=== PATIENT | female | born 1950 | race Caucasian/White ===

== ENCOUNTER → 2018-09-30 07:49 | Outpatient (CLI) | payer MEDICARE, OTHER, SELFPAY ==
--- NOTE | 2018-09-30 | DI.MRI.S_ITS ---
PROCEDURE: MR HEAD/BRAIN WO CON INDICATIONS: CVA TECHNIQUE: Non-contrast axial T1 spin echo, axial T2 fast spin echo, sagittal and axial FLAIR, coronal T2 fast spin echo, axial gradient echo, axial diffusion and ADC through the brain. COMPARISON: None. FINDINGS: Image quality: This examination is limited by involuntary motion artifact. Images are repeated, with some improvement. CSF spaces: Ventricles appear symmetric in size and shape. Basal cisterns are patent. No extra-axial fluid collections. Brain: No intracranial bleeds or mass effects. There is cerebral volume loss for age. There are periventricular and deep white matter chronic small vessel ischemic changes. Brainstem appears normal. Diffusion-weighted images show no acute ischemic insults. No chronic ischemic insults. Normal intravascular flow voids are present. Skull and face: Calvarial bone marrow is normal in signal. Orbits are normal. Sinuses: Sinuses and mastoids are clear. IMPRESSION: Limited study demonstrating no findings of acute or subacute infarction. Note is made of age-appropriate brain parenchymal volume loss and chronic small vessel ischemic changes. Dictated by: Jose Granda M.D. on 09/30/2018 at 8:25 Approved by: Jose Granda M.D. on 09/30/2018 at 8:26
== END ==
PROVIDERS: Visit Provider Family Medicine
DX: I63.9 Cerebral infarction, unspecified (principal)
CPT/HCPCS: 70551

== ENCOUNTER → 2020-03-09 13:15 | Outpatient (CLI) | payer MEDICARE, OTHER, SELFPAY ==
--- NOTE | 2020-03-09 | DI.MG.S_ITS ---
BILATERAL DIGITAL SCREENING MAMMOGRAM 3D/2D WITH CAD: 03/09/2020 CLINICAL: Routine screening. Comparison is made to exams dated: 06/29/2015 mammogram, 07/14/2013 mammogram, and 01/11/2012 mammogram - [facility]. The tissue of both breasts is heterogeneously dense. This may lower the sensitivity of mammography. Current study was also evaluated with a Computer Aided Detection (CAD) system. No significant masses, calcifications, or other findings are seen in either breast. There has been no significant interval change. IMPRESSION: NEGATIVE There is no mammographic evidence of malignancy. A 1 year screening mammogram is recommended. This exam was interpreted at Station ID: [id number]. NOTE: For mammograms, a report in lay terms will be sent to the patient. Approximately 15% of breast malignancies will not be visualized mammographically. In the management of a palpable breast mass, a negative mammogram must not discourage biopsy of a clinically suspicious lesion. Electronically Signed By: Luann garcia/shahram:03/09/2020 16:15:08 letter sent: Normal Exam ACR BI-RADS Category 1: Negative 3341F
== END ==
PROVIDERS: PCP Family Medicine; Referring Provider Family Medicine; Visit Provider Family Medicine
DX: Z12.31 Encounter for screening mammogram for malignant neoplasm of breast (principal)
CPT/HCPCS: 77063; 77067

== ENCOUNTER 2021-06-23 14:17 | Emergency (ER) | payer MEDICARE, SELFPAY ==
[2021-06-23] VITALS (10 sets, daily range): BP systolic 136–203; BP diastolic 63–95; PULSE 82–102; RESP 14–20; TEMP 36.5; O2SAT 96–99; BMI 22.6
--- NOTE | 2021-06-23 15:14 | DI.RAD.S_ITS ---
PROCEDURE: XR CHEST 1V INDICATIONS: chest pain TECHNIQUE: One view of the chest was acquired. COMPARISON: None. FINDINGS: Surgical changes and devices: None. Lungs and pleura: Lungs are clear. No pleural effusions or pneumothorax. Mediastinum: Mediastinal contours appear normal. Heart size is normal. Bones and chest wall: No suspicious bony lesions. Overlying soft tissues appear unremarkable. IMPRESSION: No acute cardiopulmonary disease. Dictated by: Diana Berg M.D. on 06/23/2021 at 15:57 Approved by: Diana Berg M.D. on 06/23/2021 at 15:57
--- NOTE | 2021-06-23 15:20 | ED_ITS ---
HPI - Neuro Symptoms/Deficit General Chief Complaint: Neuro Symptoms/Deficit Stated Complaint: Disoriented last night- Dr referred to ER. Pos TIA Time Seen by Provider: 06/23/21 14:23 Source: patient Mode of arrival: Ambulatory Limitations: no limitations History of Present Illness HPI Narrative: Patient is a 71-year-old female with history of TIA presenting with possible TIA. She says last night she was a little disoriented. It started maybe around 5:00 p.m. she was talking on a phone call then she went to is doing call or she did not speak very much and then her family talk to her because they were concerned about her disorientation. She really was not sure what day or time it was. She did not have facial droop she did not have any difficulty speaking. She says her family could understand her. She had no weakness numbness tingling. She said 2 years ago she had a previous TIA presenting similarly the symptoms were much more severe. She said she went to sleep around midnight and still was not quite normal but woke up this morning and felt fine. She denies any chest pain shortness of breath numbness tingling weakness,. She said that she was taking aspirin for about a year but quit taking it because she did not think it was helping. On Anticoagulants: No Related Data Allergies Allergy/AdvReac Type Severity Reaction Status Date / Time ciprofloxacin [From Cipro] Allergy Verified 06/23/21 14:30 Review of Systems Review of Systems Narrative: GENERAL: Denies chills, fatigue, malaise, fever, sweats, travel HEENT: Denies sinus pain, ear pain, sore throat, difficulty swallowing, neck pain RESPIRATORY: Denies dyspnea, cough, wheezing, hemoptysis, sputum. CARDIOVASCULAR: Denies chest pain, palpitations, orthopnea, edema GASTROINTESTINAL: Denies nausea, vomiting, abdominal pain, diarrhea, constipation, melena. : Denies dysuria, frequency, incontinence, hematuria, urinary retention, flank pain. MUSCULOSKELETAL: Denies weakness, joint pain, or bony pain SKIN: No rash, no erythema, no pruritus NEUROLOGIC: See HPI PSYCHIATRIC: No concerning psychosocial issues. 12 point review of systems is negative except for those stated above and HPI Hematologic/Lymphatic On Anticoagulants: No Exam Initial Vital Signs Initial Vital Signs: Vital Signs Temperature 97.7 F 06/23/21 14:25 Pulse Rate 98 H 06/23/21 14:25 Respiratory Rate 14 06/23/21 14:25 Blood Pressure 203/95 H 06/23/21 14:25 Pulse Oximetry 99 06/23/21 14:25 GENERAL: Alert well-appearing 71-year-old female HEENT: Head atraumatic,EOMI, pupils reactive, face symmetric, moist mucous membranes CARDIOVASCULAR: Regular rate and rhythm without murmurs, rubs or gallops. RESPIRATORY: Breath sounds equal bilaterally, no wheezes rales or rhonchi. ABDOMEN: Soft, nontender. Normoactive bowel sounds all 4 quadrants. No guarding or rebound. EXTREMITIES: Normal range of motion, no clubbing or edema. Neurovascularly intact NEUROLOGICAL: Alert and oriented x4.Normal gait and speech. Cranial nerves II through XII grossly intact. Good xgouft-ql-gchy, good luem-fn-fvjf, strength equal bilaterally, no dysarthria or aphasia, sensation in tact to soft touch bilaterally, no visual changes, no facial droop SKIN: Warm, dry, no laceration, no petechiae, no rashes or lesions. Scores NIH Stroke Scale Level of Conciousness: Alert, keenly responsive Ask month/age: Answers both questions correctly. Open/close eyes, close hand: Performs both tasks correctly Best gaze horizontal: Normal Visual shafer: No visual loss Facial palsy: Normal symetrical movement Left arm drift: No drift for full 10 sec Right arm drift: No drift for full 10 sec Left leg drift: No drift for full 5 sec Right leg drift: No drift for full 5 sec Limb ataxia: Absent Sensory on face/arms/legs: Normal, no sensory loss Best language: No aphasia, normal Dysarthria: Normal Extinction or inattention: No abnormality Total NIH Stroke scale score: 0 Course Orders Ordered: ED Orders 06/23/21 14:59 Complete Blood Count AUTO DIFF Stat Comprehensive Metabolic Panel Stat Lipase Stat Troponin & CK Cardiac Panel Stat 06/23/21 15:14 XR chest 1V Stat EKG-12 Lead Stat 06/23/21 15:21 CT angio head and neck Stat Discontinued Medications Aspirin (Aspirin 81 Mg Chew Tab) 324 mg PO NOW ONE Stop: 06/23/21 17:16 Last Admin: 06/23/21 17:21 Dose: 324 mg Documented by: TRENT Vital Signs Vital signs: Vital Signs - 8 hr 06/23/21 14:25 06/23/21 14:27 06/23/21 14:28 Temperature 97.7 F Pulse Rate 98 H 91 H Respiratory Rate 14 Blood Pressure 203/95 H 203/95 H Pulse Oximetry 99 98 06/23/21 14:30 06/23/21 15:00 06/23/21 15:30 Temperature Pulse Rate 93 H 88 82 Respiratory Rate Blood Pressure 173/79 H 160/73 H 171/80 H Pulse Oximetry 98 96 96 06/23/21 16:05 06/23/21 16:10 06/23/21 16:30 Temperature Pulse Rate 97 H 102 H 88 Respiratory Rate Blood Pressure 192/80 H 136/63 Pulse Oximetry 98 98 97 06/23/21 17:00 Temperature Pulse Rate 84 Respiratory Rate 20 Blood Pressure 144/70 H Pulse Oximetry 97 MDM - Neuro Symptoms/Deficit Lab Data Result diagrams: 06/23/21 14:59 06/23/21 14:59 Labs: Lab Results 06/23/21 06/23/21 Range/Units 14:59 14:59 WBC 7.8 (4.5-11.0) X10^3/uL RBC 4.47 (4.0-5.2) X10^6/uL Hgb 14.2 (12.0-16.0) g/dL Hct 40.7 (36-46) % MCV 91.0 (80-100) fL MCH 31.8 (26-34) PG MCHC 34.9 (30-36) % RDW 12.5 (11.6-14.8) % Plt Count 316 (150-400) X10^3/uL Neut % (Auto) 51.7 (50-75) % Lymph % (Auto) 37.2 (25-40) % [place] % (Auto) 8.1 (3-14) % Eos % (Auto) 1.9 L (2-4) % Baso % (Auto) 1.1 (0-2) % Neut # (Auto) 4000 (5234-2916) /uL Lymph # (Auto) 2900 (4489-8559) /uL [place] # (Auto) 600 (0-900) /uL Eos # (Auto) 100 (0-450) /uL Baso # (Auto) 100 (0-100) /uL Sodium 138 (137-145) mmol/L Potassium 3.6 (3.4-5.1) mmol/L Chloride 105 (98-107) mmol/L Carbon Dioxide 25 (22-32) mmol/L BUN 14 (7-17) mg/dL Creatinine 0.62 (0.52-1.04) mg/dL Estimated GFR > 60.0 (>60) mL/min BUN/Creatinine Ratio 22.6 H (6-22) Glucose 148 H (80-110) mg/dL Calcium 9.6 (8.4-10.2) mg/dL Total Bilirubin 0.5 (0.2-1.3) mg/dL AST 40 H (14-36) IU/L ALT 33 (<35) IU/L Alkaline Phosphatase 64 (38-126) U/L Total Creatine Kinase 45 (30-135) U/L CK-MB (CK-2) TNP CK-MB (CK-2) Rel Index TNP Troponin I < 0.012 (0.01-0.034) ng/mL Total Protein 7.5 (6.3-8.2) g/dL Albumin 4.6 (3.5-5.0) g/dL Globulin 2.9 (1.7-4.1) g/dL Albumin/Globulin Ratio 1.6 (1.0-2.8) Lipase 154 (23-300) U/L Imaging Data CTA - brain/neck: Radiologist's Impression: PROCEDURE:? CT ANGIO HEAD AND NECK ? INDICATIONS:? confusion, now resolved ? TECHNIQUE:? Pre-contrast 4.5 mm thick sections acquired from the foramen magnum to the vertex.? After the administration of intravenous contrast, 1 mm thick sections acquired from the aortic arch through the [place] of [place].? Post-contrast 4.5 mm thick sections then re- acquired from the foramen magnum to the vertex.? 3-dimensional onufkcd-ormbnwsdh-lgvulac ion (MIP) and/or volume rendering reformats were acquired of the central intracranial vasculature and neck separately. ? COMPARISON:? None. ? FINDINGS: BRAIN:? CSF spaces:? Ventricles are grossly unremarkable.? Basal cisterns are patent.? No extra-axial fluid collections.? ? Brain:? No midline shift. No intracranial bleeds or masses.? Dickson-white matter interface appears intact.? ? Skull and face:? Calvarium and facial bones appear intact, without suspicious lesions.? Orbits appear normal.? ? Sinuses:? Sinuses and mastoids are clear.? ? HEAD CT ANGIOGRAPHY:? Anterior circulation:? Intracranial internal carotid arteries (ICA): Patent. Anterior cerebral arteries (REVA): Patent. Middle cerebral arteries (MCA): Patent.? Other: No aneurysms are seen.? ? Posterior circulation:? Visualized portions of the vertebral arteries: Patent. Basilar artery: Patent. Posterior cerebral arteries (SENIOR CARE SPECIALIST): Patent. Other: No aneurysms are seen.? ? NECK CT ANGIOGRAPHY:? Carotid atherosclerotic burden:? None. Common carotid artery (CCA) origins:? Patent.? Common carotid arteries (CCA): Patent. Internal carotid arteries (ICA): Patent.? Vertebral artery origins: Patent? Extracranial vertebral arteries: Patent.? ? Soft tissues:? Visualized neck soft tissues demonstrate no suspicious abnormalities.? ? Bones:? No suspicious bony lesions.? Cervical spondylosis and facet arthropathy. ? IMPRESSION: No focal intracranial stenosis or occlusion ? No ICA stenosis ? No acute intracranial process. ? Any quantitative measurements of stenosis were performed using NASCET criteria.? ? ? Dictated by: Emiliano Leiva M.D. on 06/23/2021 at 16:15 ?? ECG Data Interpretation: Sinus rhythm rate 81 FL interval 164 QRS S [address] changes no T-wave inversion MDM Narrative Medical decision making narrative: Patient had some mild confusion last night. She says she was able to look at her calendar and transfer or what day it was. It does not sound as though she had any large vessel occlusion symptoms. Symptoms have completely resolved at this time. Possible TIA. Previous TIA was in 2019 MRI that time was negative she has had symptoms were much more severe at that time. Due to severe bed shortage and pandemic unable to admit patient. He is given aspirin in the emergency department. Recommend she follow-up with her primary care provider with outpatient MRI and echocardiogram. She agrees to continue to take aspirin daily. With also given her education on if she should have new or concerning symptoms return to the nearest emergency department for possible tPA. Discharge Plan Departure Patient Disposition: Home Clinical Impression: Transient cerebral ischemia Instructions: DI for Transient Ischemic Attack Activity Restrictions/Additional Instructions: *You have been diagnosed with probable TIA *What to do: You do need more studies such as MRI of the brain and echocardiogram. Please call your primary care provider to help schedule these as an outpatient. P *Continue to take medications as directed lease take aspirin 81 mg daily to help prevent future stroke. *Follow up with your primary care provider in 2-3 days *Return to ER if you should have confusion, weakness, numbness, tingling, facial droop, difficulty speaking or any new, worsening or concerning symptoms, go to the nearest emergency department Referrals: Ting Klein MD [Primary Care Provider] -
[2021-06-23 15:21] LABS: Add Manual Diff / Slide Review NO; Basophils Absolute Auto 100 /uL (0-100); Basophils Percent Auto 1.1 % (0-2); Eosinophils Absolute Auto 100 /uL (0-450); Eosinophils Percent Auto 1.9 % (2-4); Hematocrit 40.7 % (36-46); Hemoglobin 14.2 g/dL (12.0-16.0); Lymphocytes Absolute Auto 2900 /uL (1100-4500); Lymphocytes Percent Auto 37.2 % (25-40); Mean Corpuscular HGB Conc 34.9 % (30-36); Mean Corpuscular Hemoglobin 31.8 PG (26-34); Monocytes Absolute Auto 600 /uL (0-900); Monocytes Percent Auto 8.1 % (3-14); Neutrophils Absolute Auto 4000 /uL (1500-7000); Neutrophils Percent Auto 51.7 % (50-75); Platelet Count 316 X10^3/uL (150-400); Red Blood Cell Count 4.47 X10^6/uL (4.0-5.2); Red Cell Distribution Width 12.5 % (11.6-14.8); White Blood Cell Count 7.8 X10^3/uL (4.5-11.0)
--- NOTE | 2021-06-23 15:21 | DI.CT.S_ITS ---
PROCEDURE: CT ANGIO HEAD AND NECK INDICATIONS: confusion, now resolved TECHNIQUE: Pre-contrast 4.5 mm thick sections acquired from the foramen magnum to the vertex. After the administration of intravenous contrast, 1 mm thick sections acquired from the aortic arch through the [place] of [place]. Post-contrast 4.5 mm thick sections then re-acquired from the foramen magnum to the vertex. 3-dimensional qoxyphw-fgmsjnjwt-alcstfzssq (MIP) and/or volume rendering reformats were acquired of the central intracranial vasculature and neck separately. COMPARISON: None. FINDINGS: BRAIN: CSF spaces: Ventricles are grossly unremarkable. Basal cisterns are patent. No extra-axial fluid collections. Brain: No midline shift. No intracranial bleeds or masses. Dickson-white matter interface appears intact. Skull and face: Calvarium and facial bones appear intact, without suspicious lesions. Orbits appear normal. Sinuses: Sinuses and mastoids are clear. HEAD CT ANGIOGRAPHY: Anterior circulation: Intracranial internal carotid arteries (ICA): Patent. Anterior cerebral arteries (REVA): Patent. Middle cerebral arteries (MCA): Patent. Other: No aneurysms are seen. Posterior circulation: Visualized portions of the vertebral arteries: Patent. Basilar artery: Patent. Posterior cerebral arteries (AIR DEODORIZER SERVICER): Patent. Other: No aneurysms are seen. NECK CT ANGIOGRAPHY: Carotid atherosclerotic burden: None. Common carotid artery (CCA) origins: Patent. Common carotid arteries (CCA): Patent. Internal carotid arteries (ICA): Patent. Vertebral artery origins: Patent Extracranial vertebral arteries: Patent. Soft tissues: Visualized neck soft tissues demonstrate no suspicious abnormalities. Bones: No suspicious bony lesions. Cervical spondylosis and facet arthropathy. IMPRESSION: No focal intracranial stenosis or occlusion No ICA stenosis No acute intracranial process. Any quantitative measurements of stenosis were performed using NASCET criteria. Dictated by: Emiliano Leiva M.D. on 06/23/2021 at 16:15 Approved by: Emiliano Leiva M.D. on 06/23/2021 at 16:22
[2021-06-23 15:29] LABS: Alanine Aminotransferase 33 IU/L (<35); Albumin 4.6 g/dL (3.5-5.0); Albumin Globulin Ratio 1.6 (1.0-2.8); Alkaline Phosphatase 64 U/L (38-126); Aspartate Aminotransferase 40 IU/L (14-36); BUN Creatinine Ratio 22.6 (6-22); Bilirubin Total 0.5 mg/dL (0.2-1.3); Blood Urea Nitrogen 14 mg/dL (7-17); Calcium 9.6 mg/dL (8.4-10.2); Carbon Dioxide 25 mmol/L (22-32); Chloride 105 mmol/L (98-107); Creatine Kinase 45 U/L (30-135); Estimated Glomerular Filt Rate > 60.0 mL/min (>60); Globulin 2.9 g/dL (1.7-4.1); Glucose 148 mg/dL (80-110); HEMOLYSIS 19 (0-50); Lipase 154 U/L (23-300); Potassium 3.6 mmol/L (3.4-5.1); Sodium 138 mmol/L (137-145); Total Protein 7.5 g/dL (6.3-8.2)
[2021-06-23 15:40] LABS: Troponin I < 0.012 ng/mL (0.01-0.034)
[2021-06-23] MEDS: ASPIRIN 81 MG CHEW TAB 324 MG PO (17:21)
== END 2021-06-23 17:33 | disposition home or self-care (01) ==
PROVIDERS: Emergency Provider Emergency Medicine; PCP Family Medicine
DX: G45.9 Transient cerebral ischemic attack, unspecified (principal); R03.0 Elevated blood-pressure reading, without diagnosis of hypertension
CPT/HCPCS: 36415; 70496; 70498; 71045; 80053; 82550; 83690; 84484; 85025; 93005; 93010; 99285

== ENCOUNTER → 2021-06-30 17:38 | Outpatient (CLI) | payer MEDICARE, SELFPAY ==
--- NOTE | 2021-06-30 | DI.MRI.S_ITS ---
PROCEDURE: MR HEAD/BRAIN WO CON INDICATIONS: Transient cerebral ischemic attack, unspecified TECHNIQUE: Non-contrast axial T1 spin echo, axial T2 fast spin echo, sagittal and axial FLAIR, coronal T2 fast spin echo, axial gradient echo, axial diffusion and ADC through the brain. COMPARISON: [facility], CT, CT ANGIO HEAD AND NECK, 06/23/2021, 15:30. FINDINGS: Image quality: Excellent. CSF spaces: Ventricles appear symmetric in size and shape. Basal cisterns are patent. No extra-axial fluid collections. Brain: No intracranial bleeds or mass effects. There is cerebral volume loss for age. There are periventricular and deep white matter chronic small vessel ischemic changes. Brainstem appears normal. Diffusion-weighted images show no acute ischemic insults. No chronic ischemic insults. Normal intravascular flow voids are present. Skull and face: Calvarial bone marrow is normal in signal. Orbits are normal. Sinuses: Sinuses and mastoids are clear. IMPRESSION: 1. No acute intracranial disease process. 2. No areas of acute or chronic infarction. 3. No abnormal intracranial mass or mass effect. 4. Mild, diffuse cerebral volume loss. 5. Minimal periventricular and subcortical white matter chronic microvascular ischemic change. Dictated by: Celia Zepeda MD, PhD on 07/01/2021 at 9:10 Approved by: Celia Zepeda MD, PhD on 07/01/2021 at 9:16
== END ==
PROVIDERS: PCP Family Medicine; Referring Provider Family Medicine; Visit Provider Family Medicine
DX: G45.9 Transient cerebral ischemic attack, unspecified (principal)
CPT/HCPCS: 70551

== ENCOUNTER → 2021-07-29 08:54 | Outpatient (CLI) | payer MEDICARE, SELFPAY ==
--- NOTE | 2021-07-29 | DI.ECHO.S_ITS ---
[facility] +---------+ : : [address] [place] [address] : : : : [id number] : : : : Phone: [phone] Echocardiogram Report + + :Name: CLAUDY LINDA Study Date: 07/29/2021 Height: 61 in : :[facility] ReadingLocation: Weight: 130 lb : : Gender: Female BSA: 1.6 m2 : :: 1950 Age: 71 yrs BP: 129/74 mmHg: :Reason For Study: TIA, palpitations : : Performed By: Avel Willson : :Referring: JOSE CALVILLO : + + Interpretation Summary The left ventricular cavity is small. The left ventricle is hyperdynamic. The ejection fraction is estimated to be 70-75%. An borderline intracavitary gradient is suspected. The right ventricle is normal in size and function. There is mild to moderate pulmonic regurgitation. The IVC is of normal diameter and collapses greater than 50% with a sniff. This suggests a low right atrial pressure of 3 mm Hg.The right ventricular systolic pressure is estimated to be at least 26 mmHg based on an estimated right atrial pressure of 3 mm Hg. Moderate atherosclerotic plaque(s) in the aortic arch. Procedure: A two-dimensional transthoracic echocardiogram with color flow and Doppler was performed. The study quality was technically adequate. There is no prior echocardiogram noted for this patient. The patient was in normal sinus rhythm during the exam. Left Ventricle: The left ventricular cavity is small. There is normal left ventricular wall thickness. An intracavitary gradient is suspected. There is no thrombus. The ejection fraction is estimated to be 70-75%. The left ventricle is hyperdynamic. There are no obvious focal wall motion abnormalities noted but poor endocardial definition reduces the sensitivity for the detection of such. MV E/A: 1.0 Med Peak E' Tip: 7.8 cm/sec E/E' med: 13.1. Right Ventricle: The right ventricle is normal in size and function. Atria: The left atrial size is normal. A prominent eustachian valve is noted. The right atrium grossly appears normal in size. There is no Doppler evidence for an interatrial shunt. The thickening of interatrial septum suggests lipomatous hypertrophy. Mitral Valve: There is mild mitral annular calcification. There is trace mitral regurgitation. Aortic Valve: The aortic valve is trileaflet. The aortic valve opens well. There is no aortic valve stenosis. No aortic regurgitation is present. Tricuspid Valve: The tricuspid valve is normal. There is trace tricuspid regurgitation. The right ventricular systolic pressure is estimated to be at least 26 mmHg based on an estimated right atrial pressure of 3 mm Hg. Pulmonic Valve: The pulmonic valve is not well seen, but is grossly normal. There is mild to moderate pulmonic regurgitation. Great Vessels: The aortic root is normal size. The ascending aorta is normal in size. The aortic arch is normal in size. Moderate atherosclerotic plaque(s) in the aortic arch. The IVC is of normal diameter and collapses greater than 50% with a sniff. This suggests a low right atrial pressure of 3 mm Hg. Pericardium/ Pleura There is no pericardial effusion. There is an anterior echo-free space consistent with a fat pad. There is no pleural effusion. MMode/2D Measurements & Calculations LVIDd: 3.3 cm LVOT diam: 1.9 cm LVIDs: 1.6 cm Ao root diam: 3.0 cm FS: 50.4 % asc Aorta Diam: 2.6 cm IVSd: 0.75 cm Ao Arch Diam (Prox Trans): 3.1 cm LVPWd: 0.80 cm LV minaya. diameter/BSA (cm/m^2): 2.1 LV sys. diameter/BSA (cm/m^2): 1.0 LA A2 area: 13.7 cm2 RA long axis: 4.9 cm LA A4 area: 15.0 cm2 RA area: 15.6 cm2 LA length (vol): 5.3 cm RA vol: 42.5 ml LA vol: 33.2 ml RA : 27.0 ml/m2 LA vol index: 21.1 ml/m2 IVC diam: 1.6 cm TAPSE: 2.3 cm Doppler Measurements & Calculations Ao V2 max: 175.1 cm/sec LVOT Max Tip: 166.0 cm/sec Ao V2 mean: 121.8 cm/sec LV V1 max P.0 mmHg Ao max P.3 mmHg LV V1 VTI: 37.2 cm Ao mean P.4 mmHg LIDYA(I,D): 2.7 cm2 Ao V2 VTI: 37.2 cm LIDYA(V,D): 2.6 cm2 sev ratio: 1.00 LIDYA indexed to BSA (cm^2/m^2): 1.7 MV E max tip: 102.1 cm/sec TR max tip: 240.5 cm/sec MV A max tip: 100.3 cm/sec TR max P.1 mmHg MV E/A: 1.0 PA V2 max: 84.8 cm/sec Med Peak E' Tip: 7.8 cm/sec PA V2 mean: 61.3 cm/sec E/E' med: 13.1 PA mean P.7 mmHg Lat Peak E' Tip: 8.0 cm/sec PA pr(Accel): 32.8 mmHg E/E' lat: 12.7 E/e' average: 12.9 MV dec time: 0.20 sec SV(LVOT): 102.1 ml Reading Physician:10:38 AM
== END ==
PROVIDERS: PCP Family Medicine; Referring Provider Family Medicine; Visit Provider Family Medicine
DX: G45.9 Transient cerebral ischemic attack, unspecified (principal); I37.1 Nonrheumatic pulmonary valve insufficiency; I70.0 Atherosclerosis of aorta; R00.2 Palpitations
CPT/HCPCS: 93306

== ENCOUNTER → 2021-09-19 07:18 | Outpatient (CLI) | payer OTHER, SELFPAY ==
[2021-09-19 08:40] LABS: Alanine Aminotransferase 26 IU/L (<35); Albumin 3.9 g/dL (3.5-5.0); Albumin Globulin Ratio 1.4 (1.0-2.8); Alkaline Phosphatase 55 U/L (38-126); Aspartate Aminotransferase 31 IU/L (14-36); BUN Creatinine Ratio 16.2 (6-22); Blood Urea Nitrogen 12 mg/dL (7-17); Calcium 9.7 mg/dL (8.4-10.2); Carbon Dioxide 27 mmol/L (22-32); Chloride 109 mmol/L (98-107); Cholesterol 179 mg/dL (140-199); Estimated Glomerular Filt Rate > 60.0 mL/min (>60); Globulin 2.7 g/dL (1.7-4.1); Glucose 88 mg/dL (80-110); HDL Cholesterol 47 mg/dL (40-60); HEMOLYSIS < 15 (0-50); LDL Cholesterol Calculated 112 mg/dL (<100); Potassium 4.1 mmol/L (3.4-5.1); Sodium 140 mmol/L (137-145); Total Protein 6.6 g/dL (6.3-8.2); Triglycerides 101 mg/dL (35-150)
== END ==
PROVIDERS: PCP Family Medicine; Referring Provider Family Medicine; Visit Provider Family Medicine
DX: G45.9 Transient cerebral ischemic attack, unspecified (principal); I70.90 Unspecified atherosclerosis
CPT/HCPCS: 36415; 80053; 80061

== ENCOUNTER → 2021-10-06 12:45 | Outpatient (CLI) | payer OTHER, SELFPAY ==
[2021-10-09 15:12] LABS: Fecal Immunochemical Test Negative (Negative)
== END ==
PROVIDERS: PCP Family Medicine; Referring Provider Family Medicine; Visit Provider Family Medicine
DX: Z12.11 Encounter for screening for malignant neoplasm of colon (principal)
CPT/HCPCS: 82274

== ENCOUNTER → 2022-04-18 10:02 | Outpatient (CLI) | payer OTHER, SELFPAY ==
--- NOTE | 2022-04-18 10:07 | DI.MG.S_ITS ---
BILATERAL DIGITAL SCREENING MAMMOGRAM 3D/2D WITH CAD: 04/18/2022 CLINICAL: Routine screening. Comparison is made to exams dated: 03/09/2020 mammogram - [facility], 06/29/2015 mammogram, and 07/14/2013 mammogram - [facility]. Both breasts are heterogeneously dense, which may obscure small masses (category c / 51-75% glandular tissue). Current study was also evaluated with a Computer Aided Detection (CAD) system. No significant masses, calcifications, or other findings are seen in either breast. There has been no significant interval change. IMPRESSION: NEGATIVE There is no mammographic evidence of malignancy. A 1 year screening mammogram is recommended. Based on the Tyrer Cuzick model (a risk assessment model) the patient's lifetime risk is 6.6% and her 10 year risk is 5.9%. According to the ACR, ACS, and NCCN guidelines, an annual breast MRI exam along with mammogram is recommended if the patient's lifetime risk is 20% or greater. This exam was interpreted at Station ID: [id number]. NOTE: For mammograms, a report in lay terms will be sent to the patient. Approximately 15% of breast malignancies will not be visualized mammographically. In the management of a palpable breast mass, a negative mammogram must not discourage biopsy of a clinically suspicious lesion. Electronically Signed By: Jean Paul mar/shahram:04/18/2022 14:15:40 letter sent: Normal Exam ACR BI-RADS Category 1: Negative 3341F
== END ==
PROVIDERS: PCP Family Medicine; Referring Provider Family Medicine; Visit Provider Family Medicine
DX: Z12.31 Encounter for screening mammogram for malignant neoplasm of breast (principal)
CPT/HCPCS: 77063; 77067

== ENCOUNTER → 2022-04-21 09:03 | Outpatient (CLI) | payer OTHER, SELFPAY ==
--- NOTE | 2022-04-21 09:30 | DI.ECHO.S_ITS ---
[place] [facility]---------+ [facility] +---------+ : : [address] : [place] [address] : : : : [id number] : : : : Phone: [phone]+ Echocardiogram Report + + :Name: CLAUDY LINDA Study Date: 04/21/2022 Height: 61 in : :[facility] ReadingLocation: Weight: 120 lb : : Gender: Female BSA: 1.5 m2 : :: 1950 Age: 72 yrs BP: 149/84 mmHg: :Reason For Study: PRIOR AORTA ATHEROSCLEROSIS : :Ordering Physician: TYLER, : :GAMALIEL Performed By: Teri Naik : :Referring: GAMALIEL SCOTT : + + Interpretation Summary The patient was in sinus rhythm with heart rates between 54-67 bpm during the exam. Hypertensive during exam The left ventricular cavity is small. The ejection fraction is estimated to be 60-65%. Diastolic parameters suggest probable normal left ventricular diastolic function and normal filling pressures. There is mild tricuspid regurgitation. The right ventricular systolic pressure is estimated to be at least 23 mmHg based on an estimated right atrial pressure of 3 mm Hg. Compared to prior study on 07/29/2021, pulmonic valve regurgitation has improved. Procedure: A two-dimensional transthoracic echocardiogram with color flow and Doppler was performed. The study quality was technically adequate. Comparison is made with the echocardiogram of 07/29/2021. The patient was in sinus rhythm with heart rates between 54-67 bpm during the exam. Hypertensive during exam. Left Ventricle: The left ventricular cavity is small. There is normal left ventricular wall thickness. The ejection fraction is estimated to be 60-65%. Diastolic parameters suggest probable normal left ventricular diastolic function and normal filling pressures. Right Ventricle: The right ventricle is normal in size and function. Atria: The left atrial size is normal. Right atrial size is normal. There is no Doppler evidence for an interatrial shunt. Mitral Valve: There is mild mitral annular calcification. The mitral valve leaflets appear borderline thickened, but open well. There is trace mitral regurgitation. Aortic Valve: The aortic valve is grossly normal. The aortic valve opens well. There is no aortic valve stenosis. No aortic regurgitation is present. Tricuspid Valve: The tricuspid valve is normal in structure and function. There is mild tricuspid regurgitation. The right ventricular systolic pressure is estimated to be at least 23 mmHg based on an estimated right atrial pressure of 3 mm Hg. Pulmonic Valve: The pulmonic valve is not well visualized. There is trace pulmonic regurgitation. Great Vessels: The aortic root is normal size. The dimensions of the ascending aorta are normal. The IVC is of normal diameter and collapses greater than 50% with a sniff. This suggests a low right atrial pressure of 3 mm Hg. Pericardium/ Pleura There is no pericardial effusion. There is no pleural effusion. MMode/2D Measurements & Calculations LVIDd: 3.4 cm LVOT diam: 2.0 cm LVIDs: 2.3 cm Ao root diam: 3.1 cm FS: 32.9 % asc Aorta Diam: 2.5 cm IVSd: 1.1 cm Ao Arch Diam (Prox Trans): 2.5 cm LVPWd: 0.84 cm LV minaya. diameter/BSA (cm/m^2): 2.3 LV sys. diameter/BSA (cm/m^2): 1.5 LA A2 area: 16.5 cm2 RA long axis: 3.9 cm LA A4 area: 12.6 cm2 RA area: 11.2 cm2 LA length (vol): 4.2 cm RA vol: 27.3 ml LA vol: 41.9 ml RA : 18.0 ml/m2 LA vol index: 27.6 ml/m2 IVC diam: 1.5 cm RVD1 (basal): 3.1 cm RVD2 (mid): 3.0 cm TAPSE: 1.7 cm Doppler Measurements & Calculations Ao V2 max: 148.1 cm/sec LVOT Max Tip: 119.9 cm/sec Ao V2 mean: 91.3 cm/sec LV V1 max P.8 mmHg Ao max P.8 mmHg LV V1 VTI: 25.4 cm Ao mean P.9 mmHg LIDYA(I,D): 2.6 cm2 Ao V2 VTI: 32.0 cm LIDYA(V,D): 2.6 cm2 sev ratio: 0.80 LIDYA indexed to BSA (cm^2/m^2): 1.7 MV E max tip: 78.9 cm/sec TR max tip: 221.7 cm/sec MV A max tip: 83.3 cm/sec TR max P.7 mmHg MV E/A: 0.95 PA V2 max: 81.9 cm/sec Med Peak E' Tip: 8.7 cm/sec PA V2 mean: 56.9 cm/sec E/E' med: 9.0 PA mean P.5 mmHg Lat Peak E' Tip: 8.7 cm/sec PA pr(Accel): 34.5 mmHg E/E' lat: 9.0 E/e' average: 9.0 MV dec time: 0.19 sec SV(VESTAOT): 81.8 ml Reading Physician:TRACIE
== END ==
PROVIDERS: PCP Family Medicine; Referring Provider Family Medicine; Visit Provider Family Medicine
DX: I37.1 Nonrheumatic pulmonary valve insufficiency (principal); I70.0 Atherosclerosis of aorta; I10 Essential (primary) hypertension; I07.1 Rheumatic tricuspid insufficiency
CPT/HCPCS: 93306

== ENCOUNTER → 2023-05-21 11:32 | Outpatient (CLI) | payer OTHER, SELFPAY ==
[2023-05-23 08:57] LABS: Fecal Immunochemical Test Negative (Negative)
== END ==
PROVIDERS: PCP Family Medicine; Referring Provider Family Medicine; Visit Provider Family Medicine
DX: Z12.11 Encounter for screening for malignant neoplasm of colon (principal)
CPT/HCPCS: 82274

== ENCOUNTER → 2023-07-17 16:47 | Outpatient (CLI) | payer OTHER, SELFPAY ==
[2023-07-17 17:21] LABS: Add Manual Diff / Slide Review NO; Basophils Absolute Auto 100 /uL (0-100); Basophils Percent Auto 1.5 % (0-2); Eosinophils Absolute Auto 100 /uL (0-450); Eosinophils Percent Auto 1.8 % (2-4); Hematocrit 41.6 % (36-46); Hemoglobin 14.2 g/dL (12.0-16.0); Lymphocytes Absolute Auto 2800 /uL (1100-4500); Lymphocytes Percent Auto 36.2 % (25-40); Mean Corpuscular HGB Conc 34.1 % (30-36); Mean Corpuscular Hemoglobin 31.6 PG (26-34); Mean Corpuscular Volume 92.5 fL (80-100); Monocytes Absolute Auto 800 /uL (0-900); Monocytes Percent Auto 10.7 % (3-14); Neutrophils Absolute Auto 3900 /uL (1500-7000); Neutrophils Percent Auto 49.8 % (50-75); Platelet Count 264 X10^3/uL (150-400); Red Cell Distribution Width 12.4 % (11.6-14.8); White Blood Cell Count 7.8 X10^3/uL (4.5-11.0)
[2023-07-17 17:50] LABS: Alanine Aminotransferase 32 IU/L (<35); Albumin 4.4 g/dL (3.5-5.0); Albumin Globulin Ratio 1.4 (1.0-2.8); Alkaline Phosphatase 66 U/L (38-126); Aspartate Aminotransferase 39 IU/L (14-36); BUN Creatinine Ratio 18.8 (6-22); Bilirubin Total 0.7 mg/dL (0.2-1.3); Blood Urea Nitrogen 12 mg/dL (7-17); Calcium 9.9 mg/dL (8.4-10.2); Carbon Dioxide 27 mmol/L (22-32); Chloride 105 mmol/L (98-107); Cholesterol 209 mg/dL (140-199); Estimated Glomerular Filt Rate > 60 mL/min (>60); Globulin 3.2 g/dL (1.7-4.1); Glucose 100 mg/dL (80-110); HDL Cholesterol 52 mg/dL (40-60); HEMOLYSIS < 15 (0-50); LDL Cholesterol Calculated 128 mg/dL (<100); Potassium 4.1 mmol/L (3.4-5.1); Sodium 139 mmol/L (137-145); Total Protein 7.6 g/dL (6.3-8.2); Triglycerides 144 mg/dL (35-150)
[2023-07-17 18:18] LABS: TSH w/ Reflex to FT4 1.65 uIU/mL (0.47-4.68)
== END ==
PROVIDERS: PCP Family Medicine; Referring Provider Family Medicine; Visit Provider Family Medicine
DX: F32.A Depression, unspecified (principal); F43.9 Reaction to severe stress, unspecified; E78.00 Pure hypercholesterolemia, unspecified; M54.50 Low back pain, unspecified; G89.29 Other chronic pain
CPT/HCPCS: 36415; 80053; 80061; 84443; 85025

== ENCOUNTER → 2023-07-22 13:34 | Outpatient (CLI) | payer OTHER, SELFPAY ==
--- NOTE | 2023-07-22 13:35 | DI.MRI.S_ITS ---
PROCEDURE: MR LUMBAR SPINE WO CON INDICATIONS: lumbar spondylosis TECHNIQUE: Noncontrast sagittal T1 spin echo and T2 fast echo, sagittal STIR, and T2 fast spin echo through the lumbar spine. In cases with scoliosis, additional coronal T2 fast spin echo may be performed. COMPARISON: None. FINDINGS: Image quality: Excellent. Alignment and Curvature: There is normal bony alignment. Bone Marrow: Marrow is of normal overall signal. No acute vertebral body compression fractures. Spinal Cord: Conus medullaris terminates at the L1 level. Visualized cord demonstrates normal signal and size. Paraspinous Soft Tissues: No paravertebral masses. T12-L1: Severe disc desiccation and height loss. Reactive endplate changes and osteophyte. No canal stenosis. No foraminal stenosis. L1-L2: Moderate disc desiccation and height loss. Moderate canal stenosis. Moderate facet and ligamentum flavum hypertrophy. Mild right foraminal narrowing. No left neural foraminal narrowing. L2-L3: Mild disc desiccation and height loss. Moderate facet ligamentum flavum hypertrophy. No canal stenosis. Mild left foraminal narrowing. No right foraminal stenosis. L3-L4: Mild disc desiccation and height loss. Broad-based disc bulge. Moderate facet ligamentum flavum hypertrophy. Moderate canal stenosis. Mild bilateral foraminal narrowing. L4-L5: Mild disc desiccation and height loss. Broad-based disc bulge. Severe facet and ligamentum flavum hypertrophy. No canal stenosis. Moderate bilateral foraminal stenosis. L5-S1: Mild disc desiccation and height loss. Severe facet ligamentum flavum hypertrophy. No canal stenosis. Moderate right and mild left foraminal stenosis. IMPRESSION: 1. Disc desiccation and height loss throughout the lumbar spine most severe at T12-L1 where there is osteophytosis and reactive endplate changes. 2. Multilevel broad-based disc bulges and facet and ligamentum flavum hypertrophy with resultant moderate canal stenosis at L1-2 and L3-4 and mild canal stenosis at L2-3. 3. Moderate bilateral foraminal stenosis at L4-5 and moderate right foraminal stenosis at L5-S1. Dictated by: Luann John M.D. on 07/23/2023 at 10:49 Approved by: Luann John M.D. on 07/23/2023 at 10:55
== END ==
PROVIDERS: PCP Family Medicine; Referring Provider Family Medicine; Visit Provider Family Medicine
DX: M51.36 Other intervertebral disc degeneration, lumbar region (principal); M47.816 Spondylosis without myelopathy or radiculopathy, lumbar region; M48.061 Spinal stenosis, lumbar region without neurogenic claudication; M48.07 Spinal stenosis, lumbosacral region; M54.50 Low back pain, unspecified; G89.29 Other chronic pain
CPT/HCPCS: 72148

== ENCOUNTER → 2023-08-28 08:23 | Outpatient (CLI) | payer OTHER, SELFPAY ==
--- NOTE | 2023-08-28 08:24 | DI.RAD.S_ITS ---
PROCEDURE: XR LUMBAR SPINE MIN 4V INDICATIONS: LOW BACK PAIN TECHNIQUE: 5 views of the lumbar spine were acquired, including bilateral oblique views. COMPARISON: [facility], MR, MR LUMBAR SPINE WO CON, 07/22/2023, 13:44. FINDINGS: Bones: 5 nonrib-bearing vertebrae are present. There is trace retrolisthesis of L1 on L2, L2 on L3, L3 on L4. Endplate deformities are present T12 and L1 are present. Endplate changes were present along the inferior endplate T12 and superior endplate of L1 on prior MRI and appear similar versus minimally more prominent. Multilevel degenerative disc and foraminal narrowing are present with foraminal narrowing most severe at L5-S1. Soft tissues: Overlying bowel gas pattern is normal. No suspicious soft tissue calcifications. Oblique images: No pars defects. IMPRESSION: Multilevel degenerative changes as described above. Dictated by: Dominique Garcia M.D. on 08/28/2023 at 10:16 Approved by: Dominique Garcia M.D. on 08/28/2023 at 10:45
== END ==
PROVIDERS: PCP Family Medicine; Referring Provider Anesthesiology; Visit Provider Anesthesiology
DX: M47.816 Spondylosis without myelopathy or radiculopathy, lumbar region (principal); M47.817 Spondylosis without myelopathy or radiculopathy, lumbosacral region; M48.07 Spinal stenosis, lumbosacral region; M51.36 Other intervertebral disc degeneration, lumbar region; M54.50 Low back pain, unspecified; G89.29 Other chronic pain
CPT/HCPCS: 72110; 99214

== ENCOUNTER → 2023-09-13 11:35 | Outpatient (CLI) | payer OTHER, SELFPAY ==
--- NOTE | 2023-09-13 | DI.MG.S_ITS ---
BILATERAL DIGITAL SCREENING MAMMOGRAM 3D/2D WITH CAD: 09/13/2023 CLINICAL: Routine screening. Comparison is made to exams dated: 04/18/2022 mammogram, 03/09/2020 mammogram - [facility], and 06/29/2015 mammogram - [facility]. Both breasts are heterogeneously dense, which may obscure small masses (category c / 51-75% glandular tissue). Current study was also evaluated with a Computer Aided Detection (CAD) system. There is a cluster of focal asymmetries in the left breast at 12 o'clock middle depth. No other significant masses, calcifications, or other findings are seen in either breast. IMPRESSION: INCOMPLETE: NEEDS ADDITIONAL IMAGING EVALUATION The cluster of focal asymmetries in the left breast is indeterminate. Additional views with possible ultrasound are recommended. Based on the Tyrer Cuzick model (a risk assessment model) the patient's lifetime risk is 6.1% and her 10 year risk is 6.1%. According to the ACR, ACS, and NCCN guidelines, an annual breast MRI exam along with mammogram is recommended if the patient's lifetime risk is 20% or greater. This exam was interpreted at Station ID: [id number]. NOTE: For mammograms, a report in lay terms will be sent to the patient. Approximately 15% of breast malignancies will not be visualized mammographically. In the management of a palpable breast mass, a negative mammogram must not discourage biopsy of a clinically suspicious lesion. Electronically Signed By: Jean Paul Hartmann M.D. lc/:09/13/2023 15:18:40 letter sent: Additional Imaging Needed ACR BI-RADS Category 0: Incomplete [id number]
== END ==
LOC: MAMMO 11:36
PROVIDERS: PCP Family Medicine; Referring Provider Family Medicine; Visit Provider Family Medicine
DX: Z12.31 Encounter for screening mammogram for malignant neoplasm of breast (principal); R92.333 Mammographic heterogeneous density, bilateral breasts
CPT/HCPCS: 77063; 77067

== ENCOUNTER → 2023-10-11 13:32 | Outpatient (CLI) | payer OTHER, SELFPAY ==
--- NOTE | 2023-10-11 | DI.MG.S_ITS ---
UNILATERAL LEFT DIGITAL DIAGNOSTIC MAMMOGRAM 3D/2D WITH ADDITIONAL VIEWS: 10/11/2023 CLINICAL: Additional evaluation requested from prior study. Comparison is made to exams dated: 09/13/2023 mammogram, 04/18/2022 mammogram, and 03/09/2020 mammogram - . The left breast is heterogeneously dense, which may obscure small masses (category c / 51-75% glandular tissue). There is a focal asymmetry in the left breast at 12 o'clock middle depth. Stable dystrophic appearing calcifications. No other significant masses or calcifications are seen in the breast. IMPRESSION: INCOMPLETE: NEEDS ADDITIONAL IMAGING EVALUATION The focal asymmetry in the left breast resembles a cyst and is indeterminate. A targeted ultrasound is recommended and will immediately follow. Based on the Tyrer Cuzick model (a risk assessment model) the patient's lifetime risk is 6.1% and her 10 year risk is 6.1%. According to the ACR, ACS, and NCCN guidelines, an annual breast MRI exam along with mammogram is recommended if the patient's lifetime risk is 20% or greater. This exam was interpreted at Station ID: [id number]. NOTE: For mammograms, a report in lay terms will be sent to the patient. Approximately 15% of breast malignancies will not be visualized mammographically. In the management of a palpable breast mass, a negative mammogram must not discourage biopsy of a clinically suspicious lesion. Electronically Signed By: Cecil Galicia M.D. slc/:10/11/2023 14:08:02 ACR BI-RADS Category 0: Incomplete [id number]
--- NOTE | 2023-10-11 13:33 | DI.US.S_ITS ---
LIMITED ULTRASOUND OF LEFT BREAST: 10/11/2023 CLINICAL: Patient returns today to evaluate a focal asymmetry in the left breast. Comparison is made to exams dated: 10/11/2023 mammogram, 04/18/2022 mammogram, 09/13/2023 mammogram, and 03/09/2020 mammogram - [facility]. Color flow and real-time ultrasound of the left breast 12 o'clock region were performed. Dickson scale images of the real-time examination were reviewed. There is a benign 0.8 cm x 0.7 cm x 0.7 cm cluster of oval cysts in the left breast at 12 o'clock middle depth 3 cm from the nipple. This cluster of oval cysts is anechoic. This correlates with mammography findings. Color flow imaging demonstrates that there is no vascularity present. IMPRESSION: BENIGN There is no sonographic evidence of malignancy. The 0.8 cm cluster of oval cysts in the left breast is benign. A 1 year screening mammogram is recommended. Exam findings were conveyed to the patient. This exam was interpreted at Station ID: [id number]. Electronically Signed By: Cecil Galicia M.D. [facility]/:10/11/2023 14:29:57 letter sent: Normal Exam Ultrasound BI-RADS: 2 Benign
== END ==
LOC: MAMMO 13:32
PROVIDERS: PCP Family Medicine; Referring Provider Family Medicine; Visit Provider Family Medicine
DX: R92.8 Other abnormal and inconclusive findings on diagnostic imaging of breast (principal); N60.02 Solitary cyst of left breast; R92.332 Mammographic heterogeneous density, left breast
CPT/HCPCS: 76642; 77065; G0279

== ENCOUNTER → 2023-12-27 06:44 | Outpatient (CLI) | payer OTHER, SELFPAY ==
[2023-12-27 08:04] LABS: Add Manual Diff / Slide Review NO; Basophils Absolute Auto 100 /uL (0-100); Eosinophils Absolute Auto 200 /uL (0-450); Eosinophils Percent Auto 4.1 % (2-4); Hematocrit 42.2 % (36-46); Hemoglobin 14.3 g/dL (12.0-16.0); Lymphocytes Absolute Auto 1800 /uL (1100-4500); Lymphocytes Percent Auto 33.8 % (25-40); Mean Corpuscular HGB Conc 33.9 % (30-36); Mean Corpuscular Hemoglobin 31.7 PG (26-34); Mean Corpuscular Volume 93.7 fL (80-100); Monocytes Absolute Auto 600 /uL (0-900); Monocytes Percent Auto 10.7 % (3-14); Neutrophils Absolute Auto 2700 /uL (1500-7000); Neutrophils Percent Auto 50.4 % (50-75); Platelet Count 239 X10^3/uL (150-400); Red Cell Distribution Width 12.4 % (11.6-14.8); White Blood Cell Count 5.4 X10^3/uL (4.5-11.0)
[2023-12-27 15:40] LABS: Appearance Urine UA CLEAR; Bilirubin Urine UA NEGATIVE (NEGATIVE); Color Urine UA YELLOW; Glucose Urine UA NEGATIVE (Negative); Ketones Urine UA NEGATIVE (NEGATIVE); Leukocyte Esterase Urine UA NEGATIVE (NEGATIVE); Nitrite Urine UA NEGATIVE (Negative); Occult Blood Urine UA NEGATIVE (Negative); Protein Urine UA NEGATIVE (Negative); Urobilinogen Urine UA 0.2 E.U./dL (0.2)
[2023-12-27 15:54] LABS: pH Urine UA 6.5 (4.5-8.0)
[2023-12-27 15:55] LABS: Bacteria Urine None Seen; Culture Indicated Urine Cult Not Indicated; RBC Urine 0-1/HPF (0-5/HPF); Squamous Epithelial Cell Urine 5-10 /HPF (0-5/HPF); Urine Volume 10mL (spun); WBC Urine 0-1/HPF (0-5/HPF)
[2023-12-28 09:28] LABS: Apolipoprotein B 86 mg/dL (<90)
[2023-12-28 14:01] LABS: Alanine Aminotransferase 22 IU/L (<35); Albumin 3.9 g/dL (3.5-5.0); Albumin Globulin Ratio 1.4 (1.0-2.8); Alkaline Phosphatase 64 U/L (38-126); Aspartate Aminotransferase 33 IU/L (14-36); BUN Creatinine Ratio 17.3 (6-22); Bilirubin Total 0.7 mg/dL (0.2-1.3); Blood Urea Nitrogen 13 mg/dL (7-17); Calcium 9.1 mg/dL (8.4-10.2); Carbon Dioxide 25 mmol/L (22-32); Chloride 109 mmol/L (98-107); Cholesterol 159 mg/dL (140-199); Estimated Glomerular Filt Rate > 60 mL/min (>60); Globulin 2.7 g/dL (1.7-4.1); Glucose 83 mg/dL (80-110); HDL Cholesterol 49 mg/dL (40-60); HEMOLYSIS < 15 (0-50); LDL Cholesterol Calculated 94 mg/dL (<100); Potassium 4.3 mmol/L (3.4-5.1); Sodium 142 mmol/L (137-145); Total Protein 6.6 g/dL (6.3-8.2); Triglycerides 79 mg/dL (35-150)
[2023-12-28 14:08] LABS: TSH w/ Reflex to FT4 1.87 uIU/mL (0.47-4.68)
[2023-12-28 14:47] LABS: Vitamin B12 Reflex MMA if <400 415 pg/mL (239-931)
== END ==
PROVIDERS: PCP Family Medicine; Referring Provider Internal Medicine; Visit Provider Internal Medicine
DX: E78.00 Pure hypercholesterolemia, unspecified (principal); R03.0 Elevated blood-pressure reading, without diagnosis of hypertension; I37.1 Nonrheumatic pulmonary valve insufficiency; R41.3 Other amnesia
CPT/HCPCS: 36415; 80053; 80061; 81001; 82172; 82607; 84443; 85025

== ENCOUNTER → 2024-02-18 12:12 | Outpatient (CLI) | payer OTHER, SELFPAY ==
--- NOTE | 2024-02-18 12:13 | DI.ECHO.S_ITS ---
[place] +---------+ Hospital : : [address] : : [place] : : [id number] : : Phone: [phone] Echocardiogram Report + + :Name: CLAUDY LINDA Study Date: 02/18/2024 Height: 61.5 in: :[facility] ReadingLocation: Weight: 120 lb : : Gender: Female BSA: 1.5 m2 : :: 1950 Age: 73 yrs BP: 140/73 mmHg: :Reason For Study: PFO : :Ordering Physician: TIEN HATHAWAY Performed By: Teri Naik : :Referring: TIEN HATHAWAY : + + Interpretation Summary 1. The left ventricular contractility is normal. Estimated ejection fraction is greater than 55% with no segmental wall motion abnormalities. No LVH is noted. Impaired relaxation present. 2. The right ventricular contractility is normal. 3. All cardiac chambers are of normal size. 4. No significant valvular abnormalities are appreciated. 5. No obvious intracardiac shunts noted on color Doppler evaluation. No agitated saline contrast study was performed. 6. No obvious intracardiac masses nor thrombi appreciated. 7. No hemodynamically significant pericardial effusion identified. Conclusion: Normal biventricular systolic function with no significant valvular nor structural abnormalities. Procedure: A two-dimensional transthoracic echocardiogram with color flow and Doppler was performed. The study quality was technically adequate. Comparison is made with the echocardiogram of 04/21/2022. Left Ventricle: The left ventricle is normal in size and wall thickness. The ejection fraction is estimated to be 60-65%. Right Ventricle: The right ventricle is normal in size and function. Atria: The left atrial size is normal. Right atrial size is normal. There is no Doppler evidence for an interatrial shunt. Mitral Valve: The mitral valve is normal in structure and function. There is trace mitral regurgitation. Aortic Valve: The aortic valve is trileaflet. The aortic valve opens well. There is no aortic valve stenosis. No aortic regurgitation is present. Tricuspid Valve: The tricuspid valve is normal in structure and function. There is mild tricuspid regurgitation. The right ventricular systolic pressure is estimated to be at least 23 mmHg based on an estimated right atrial pressure of 3 mm Hg. Pulmonic Valve: The pulmonic valve is not well seen, but is grossly normal. The pulmonic valve is not well visualized. There is mild pulmonic regurgitation. Great Vessels: The aortic root is normal size. The dimensions of the ascending aorta are normal. The IVC is of normal diameter and collapses greater than 50% with a sniff. This suggests a low right atrial pressure of 3 mm Hg. Pericardium/ Pleura There is no pericardial effusion. There is no pleural effusion. MMode/2D Measurements & Calculations LVIDd: 4.0 cm LVOT diam: 1.9 cm LVIDs: 2.6 cm Ao root diam: 2.9 cm FS: 35.2 % asc Aorta Diam: 2.6 cm IVSd: 0.72 cm Ao Arch Diam (Prox Trans): 2.9 cm LVPWd: 0.76 cm LV minaya. diameter/BSA (cm/m^2): 2.6 LV sys. diameter/BSA (cm/m^2): 1.7 LA A2 area: 16.6 cm2 RA long axis: 3.5 cm LA A4 area: 11.2 cm2 RA area: 10.1 cm2 LA length (vol): 4.2 cm RA vol: 24.9 ml LA vol: 37.9 ml RA : 16.3 ml/m2 LA vol index: 24.7 ml/m2 IVC diam: 1.6 cm RVD1 (basal): 3.5 cm RVD2 (mid): 3.3 cm TAPSE: 1.8 cm Doppler Measurements & Calculations Ao V2 max: 137.3 cm/sec LVOT Max Tip: 90.4 cm/sec Ao V2 mean: 100.4 cm/sec LV V1 max P.3 mmHg Ao max P.5 mmHg LV V1 VTI: 21.5 cm Ao mean P.3 mmHg LIDYA(I,D): 2.1 cm2 Ao V2 VTI: 30.2 cm LIDYA(V,D): 1.9 cm2 sev ratio: 0.71 LIDYA indexed to BSA (cm^2/m^2): 1.4 MV E max tip: 77.5 cm/sec TR max tip: 226.2 cm/sec MV A max tip: 82.0 cm/sec TR max P.5 mmHg MV E/A: 0.94 PA V2 max: 87.0 cm/sec Med Peak E' Tip: 8.3 cm/sec PA V2 mean: 68.2 cm/sec E/E' med: 9.4 PA mean P.0 mmHg Lat Peak E' Tip: 6.9 cm/sec PA pr(Accel): 27.6 mmHg E/E' lat: 11.2 E/e' average: 10.3 MV dec time: 0.26 sec SV(LVOT): 62.7 ml Reading Physician:
== END ==
PROVIDERS: PCP Family Medicine; Referring Provider Internal Medicine; Visit Provider Internal Medicine
DX: Q21.12 Patent foramen ovale (principal); I07.1 Rheumatic tricuspid insufficiency
CPT/HCPCS: 93306

== ENCOUNTER → 2024-05-22 12:43 | Outpatient (CLI) | payer OTHER, SELFPAY ==
--- NOTE | 2024-05-22 12:44 | DI.RAD.S_ITS ---
PROCEDURE: XR DEXA AXIAL SKELETON INDICATIONS: post-menopausal COMPARISON: None. FINDINGS: Lumbar Spine: Bone mineral density 0.734 g/cm2, T score -2.8. Left Hip: Bone mineral density 0.595 g/cm2, T score -2.8. Left Femoral Neck: Bone mineral density 0.513 g/cm2, T score -3.0. Right Hip: Bone mineral density 0.548 g/cm2, T score -3.2. Right Femoral Neck: Bone mineral density 0.498 g/cm2, T score -3.2. Fracture Risk Calculation (when applicable): 10-year fracture risk of a major osteoporotic fracture 21 percent and of a hip fracture 8.5 percent. (T score greater or equal to -1.0 to: NORMAL) (T score from -1.1 to -2.4: OSTEOPENIA) (T score less than or equal to -2.5: OSTEOPOROSIS) IMPRESSION: Osteoporosis. Follow-up guidelines as follows: Osteoporosis: Consider a repeat DEXA and Vertebral Fracture Assessment (VFA) exam in 2 years or sooner if medically necessary, to reassess this patient's status. Osteopenia: Consider a repeat DEXA in 2-3 years to reassess this patient's status, or if there is a new clinical indication. Normal: Consider a repeat DEXA in 5 years or sooner, or if there is a new clinical indication. All treatment decisions require clinical judgment and consideration of individual patient factors, including patient preferences, comorbidities, previous drug use, risk factors not captured in the FRAX model (e.g., frailty, falls, vitamin D deficiency, increased bone turnover, interval significant decline in bone density ) and possible under- or over-estimation of fracture risk by FRAX. In addition, the NOF Guide recommends that FDA-approved medical therapies be considered in postmenopausal women and men age >= 50 years with a: * Hip or vertebral (clinical or morphometric) fracture * T-score of <=-2.5 at the spine or hip * Ten-year fracture probability by FRAX of >= 3% for hip fracture or >=20% for major osteoporotic fracture. People with diagnosed cases of osteoporosis or at high risk for fracture should have regular bone mineral density tests. For patients eligible for Medicare, routine testing is allowed once every 2 years. The testing frequency can be increased to one year for patients who have rapidly progressing disease, those who are receiving or discontinuing medical therapy to restore bone mass, or have additional risk factors. Dictated by: Ej Hathaway M.D. on 05/22/2024 at 16:46 Approved by: Ej Hathaway M.D. on 05/22/2024 at 16:47
== END ==
PROVIDERS: PCP Family Medicine; Referring Provider Family Medicine; Visit Provider Family Medicine
DX: N95.1 Menopausal and female climacteric states; M81.0 Age-related osteoporosis without current pathological fracture
CPT/HCPCS: 77080

== ENCOUNTER 2024-06-26 09:28 | Emergency (ER) | payer OTHER, SELFPAY ==
[2024-06-26] VITALS (12 sets, daily range): BP systolic 125–218; BP diastolic 58–98; PULSE 62–93; RESP 12–24; TEMP 36.7; O2SAT 93–98; BMI 22.6
--- NOTE | 2024-06-26 09:34 | DI.RAD.S_ITS ---
PROCEDURE: XR CHEST 1V INDICATIONS: chest pain TECHNIQUE: One view of the chest was acquired. COMPARISON: [facility], CR, XR CHEST 1V, 06/23/2021, 15:15. FINDINGS: Surgical changes and devices: None. Lungs and pleura: Lungs are clear. No pleural effusions or pneumothorax. Mediastinum: Mediastinal contours appear normal. Heart size is normal. Bones and chest wall: No suspicious bony lesions. Overlying soft tissues appear unremarkable. IMPRESSION: No acute cardiopulmonary abnormality is seen. Dictated by: Anton Fischer M.D. on 06/26/2024 at 10:03 Approved by: Anton Fischer M.D. on 06/26/2024 at 10:03
--- NOTE | 2024-06-26 09:42 | EKG_ITS ---
[address] [address] Test Date: 2024-06-26 Pat Name: Cheyenne Jones Department: Room: Gender: Female Gsa Coordinator: FABRICIO : 1950 Requested By: Order Number: [id number] Reading MD: Sharad Das MD Measurements Intervals Rebuck Rate: 77 P: 64 MO: 156 QRS: 6 QRSD: 78 T: 60 QT: 404 QTc: 457 Interpretive Statements Normal sinus rhythm Inferior infarct , age undetermined Electronically Signed On 06-27-2024 11:38:54 PST by Sharad Das MD
[2024-06-26 09:54] LABS: Add Manual Diff / Slide Review NO; Basophils Absolute Auto 100 /uL (0-100); Eosinophils Absolute Auto 100 /uL (0-450); Eosinophils Percent Auto 1.2 % (2-4); Hematocrit 47.1 % (36-46); Hemoglobin 16.1 g/dL (12.0-16.0); Lymphocytes Absolute Auto 2700 /uL (1100-4500); Lymphocytes Percent Auto 31.6 % (25-40); Mean Corpuscular HGB Conc 34.1 % (30-36); Mean Corpuscular Hemoglobin 31.9 PG (26-34); Mean Corpuscular Volume 93.6 fL (80-100); Monocytes Absolute Auto 700 /uL (0-900); Monocytes Percent Auto 8.5 % (3-14); Neutrophils Absolute Auto 4900 /uL (1500-7000); Neutrophils Percent Auto 57.7 % (50-75); Platelet Count 283 X10^3/uL (150-400); Red Blood Cell Count 5.03 X10^6/uL (4.0-5.2); Red Cell Distribution Width 12.8 % (11.6-14.8); White Blood Cell Count 8.6 X10^3/uL (4.5-11.0)
[2024-06-26 10:01] LABS: Prothrombin Time 11.1 SECONDS (9.4-12.5)
[2024-06-26 10:03] LABS: PTT Partial Thromboplastin Tim 39 SECONDS (25.1-36.5)
--- NOTE | 2024-06-26 10:10 | ED.CHESTPAIN ---
HPI - Chest Pain General Chief Complaint: Chest Pain Stated Complaint: Left Side Chest Pain Time Seen by Provider: 06/26/24 09:32 Source: patient and EMS Mode of arrival: EMS Limitations: no limitations History of Present Illness HPI narrative: Patient is a 74-year-old female who is here for evaluation of chest discomfort. Patient states that it started at approximately 0530 this morning which is approximately 4-1/2 hours prior to arrival here in the emergency department. She states she was getting up at the time. Describes it as a sharp pain in the left side of her chest. It did cause some discomfort to her left arm and her upper back. No problems breathing but the pain did get worse when she took a big deep breath in. She stated that she could reproduce the pain by raising her left arm up. She was now asymptomatic. The discomfort went away some time between when the paramedics arrived and when she arrived here in the emergency department. She was now asymptomatic. Has never had symptoms like this in the past. Has had a TIA in the past. Earlier this year had a echocardiogram for evaluation of her TIAs what she was told that everything was okay. No history of abnormal heart rhythms. No fevers. No cough. No skin changes. Related Data Home Medications Medication Instructions Recorded Confirmed red krill oil PO 08/23/21 06/16/24 triphale PO 08/23/21 06/16/24 vitamin E mixed 400 unit capsule unit PO 08/23/21 06/16/24 floravital PO 07/17/23 06/16/24 horsetail tea PO 07/17/23 06/16/24 Chelated Magnesium 200 mg PO DAILY 08/28/23 06/16/24 cholecalciferol (vitamin D3) 125 125 mcg PO DAILY 12/25/23 06/16/24 mcg (5,000 unit) tablet (Vitamin D3) Allergies Allergy/AdvReac Type Severity Reaction Status Date / Time urbano Allergy Severe choking Verified 06/16/24 10:22 ciprofloxacin [From Cipro] Allergy Verified 06/16/24 10:22 smoked meats Allergy Intermediate Hives Uncoded 06/16/24 10:22 Review of Systems Review of Systems ROS Unobtainable: All systems reviewed & are unremarkable except as noted in HPI and below Patient History Medical History Bilateral hand pain Borderline hypertension Lumbar degenerative disc disease Spondylosis of lumbar spine Chronic low back pain Actinic keratosis (~1984) Seasonal allergies (~1967) Human papillomavirus (~2014) Thyroid nodule (~2019) Depression (~1978) Mild pulmonary valve regurgitation Surgical History Anesthesia H/O tooth extraction (~1959) Previous (~1970) Previous (~1969) History of tonsillectomy (~1968) History of appendectomy (~1954) Family History Father Seizures Mother Lymphosarcoma Lymphoma Diabetes mellitus Brother Suicide Brother Pancreatic cancer Diabetes mellitus Heart disease Rheumatic fever Grandfather Stomach cancer Grandfather No problems noted. Social History Smoking Status: Former smoker Smoking Status: Former smoker alcohol intake frequency: holidays/special occasions only Substance Use Type: does not use Exam Initial Vital Signs Initial Vital Signs: Vital Signs Temperature 98.1 F 06/26/24 09:34 Pulse Rate 87 06/26/24 09:34 Respiratory Rate 15 06/26/24 09:34 Blood Pressure 218/98 H 06/26/24 09:34 Pulse Oximetry 98 06/26/24 09:34 Oxygen Delivery Method Room Air 06/26/24 09:34 Const General: cooperative, comfortable and No ill appearing HENMT Head: normal to inspection and normocephalic Chest Chest: No crepitus and No tenderness Resp Effort & Inspection: normal respiratory effort Auscultation: clear to auscultation bilaterally Cardio Rate: regular rate Rhythm: regular rhythm Skin General: no rashes or lesions noted Neuro General: patient alert, patient awake, patient oriented x3 and moves all extremities Extrem General: No edema Course Orders Ordered: ED Orders 06/26/24 09:30 Complete Blood Count AUTO DIFF Stat Comprehensive Metabolic Panel Stat Lipase Stat Magnesium Stat NT-proBNP (BNP-Adult 18+) Stat PTT Partial Thromboplastin Kadeem Stat Prothrombin Time INR Stat Troponin & CK Cardiac Panel Stat 06/26/24 09:34 XR chest 1V Stat EKG-12 Lead Stat 06/26/24 11:25 Troponin & CK Cardiac Panel Stat Discontinued Medications Aspirin (Aspirin 81 Mg Chew Tab) 324 mg PO NOW ONE Stop: 06/26/24 09:35 Last Admin: 06/26/24 09:49 Dose: Not Given Documented By: RB Vital Signs Vital signs: Vital Signs - 8 hr 06/26/24 09:34 06/26/24 09:35 06/26/24 09:36 Temperature 98.1 F Pulse Rate 87 93 H Respiratory Rate 15 13 Blood Pressure 218/98 H 218/98 H Pulse Oximetry 98 98 Oxygen Delivery Method Room Air 06/26/24 09:36 06/26/24 10:00 06/26/24 10:01 Temperature Pulse Rate 86 74 75 Respiratory Rate 15 18 24 Blood Pressure Pulse Oximetry 98 95 94 Oxygen Delivery Method 06/26/24 10:01 06/26/24 10:30 06/26/24 10:30 Temperature Pulse Rate 79 Respiratory Rate 23 Blood Pressure 144/66 H 179/85 H Pulse Oximetry 96 Oxygen Delivery Method 06/26/24 11:00 06/26/24 11:01 06/26/24 11:01 Temperature Pulse Rate 66 66 Respiratory Rate 22 23 Blood Pressure 152/69 H Pulse Oximetry 95 94 Oxygen Delivery Method 06/26/24 11:30 06/26/24 11:31 06/26/24 11:31 Temperature Pulse Rate 62 64 Respiratory Rate 15 12 Blood Pressure 125/58 L Pulse Oximetry 94 93 Oxygen Delivery Method 06/26/24 12:00 06/26/24 12:00 Temperature Pulse Rate 72 Respiratory Rate 13 Blood Pressure 139/65 Pulse Oximetry 94 Oxygen Delivery Method MDM - Chest Pain Lab Data Attestation: I reviewed the patient's lab results. 06/26/24 09:30 06/26/24 09:30 Labs: Lab Results 06/26/24 06/26/24 Range/Units 09:30 11:25 WBC 8.6 (4.5-11.0) X10^3/uL RBC 5.03 (4.0-5.2) X10^6/uL Hgb 16.1 H (12.0-16.0) g/dL Hct 47.1 H (36-46) % MCV 93.6 (80-100) fL MCH 31.9 (26-34) PG MCHC 34.1 (30-36) % RDW 12.8 (11.6-14.8) % Plt Count 283 (150-400) X10^3/uL Neut % (Auto) 57.7 (50-75) % Lymph % (Auto) 31.6 (25-40) % Hettinger % (Auto) 8.5 (3-14) % Eos % (Auto) 1.2 L (2-4) % Baso % (Auto) 1.0 (0-2) % Neut # (Auto) 4900 (1258-3062) /uL Lymph # (Auto) 2700 (6835-3111) /uL Hettinger # (Auto) 700 (0-900) /uL Eos # (Auto) 100 (0-450) /uL Baso # (Auto) 100 (0-100) /uL PT 11.1 (9.4-12.5) SECONDS INR 1.0 (0.9-1.3) APTT 39 H (25.1-36.5) SECONDS Sodium 140 (137-145) mmol/L Potassium 4.3 (3.4-5.1) mmol/L Chloride 106 (98-107) mmol/L Carbon Dioxide 24 (22-32) mmol/L BUN 12 (7-17) mg/dL Creatinine 0.69 (0.52-1.04) mg/dL Estimated GFR > 60 (>60) mL/min BUN/Creatinine Ratio 17.4 (6-22) Glucose 119 H (80-110) mg/dL Calcium 9.9 (8.4-10.2) mg/dL Magnesium 2.1 (1.6-2.3) mg/dL Total Bilirubin 0.9 (0.2-1.3) mg/dL AST 43 H (14-36) IU/L ALT 29 (<35) IU/L Alkaline Phosphatase 84 (38-126) U/L Total Creatine Kinase 60 62 (30-135) U/L Troponin I < 0.012 < 0.012 (0.01-0.034) ng/mL NT-Pro-B Natriuret Pep < 20 (<450) pg/mL Total Protein 8.2 (6.3-8.2) g/dL Albumin 4.7 (3.5-5.0) g/dL Globulin 3.5 (1.7-4.1) g/dL Albumin/Globulin Ratio 1.3 (1.0-2.8) Lipase 105 (23-300) U/L Imaging Data Chest x-ray: Radiologist's Impression: PROCEDURE: XR CHEST 1V INDICATIONS: chest pain TECHNIQUE: One view of the chest was acquired. COMPARISON: [facility], CR, XR CHEST 1V, 06/23/2021, 15:15. FINDINGS: Surgical changes and devices: None. Lungs and pleura: Lungs are clear. No pleural effusions or pneumothorax. Mediastinum: Mediastinal contours appear normal. Heart size is normal. Bones and chest wall: No suspicious bony lesions. Overlying soft tissues appear unremarkable. IMPRESSION: No acute cardiopulmonary abnormality is seen. ECG Data Attestation: I personally reviewed and interpreted this ECG as follows: Interpretation: Sinus rhythm Ventricular rate is 77 Normal axis Normal QRS No ST T wave changes MDM Narrative Medical decision making narrative: Asymptomatic, 2- troponins, nonischemic EKG. Low suspicion that this is ACS given the fact that she has reproducible discomfort with movement of the left arm. Symptoms are not consistent with zoster she was no rash. Not consistent with pneumonia or pneumothorax given a normal chest x-ray. Had a discussion with her regarding this. Advised that she contact her primary care doctor for a follow-up. She was given return precautions. She expressed understanding and agreement with plan. Discharge Plan Departure Patient Disposition: Home Clinical Impression: Atypical chest pain Instructions: DI for Atypical Chest Pain Activity Restrictions/Additional Instructions: Continue to take all of your medications as directed. Recommend that you contact your primary care doctor for a follow-up. Return to the emergency department for new or worsening symptoms. Prescriptions: No Action red krill oil 1,000 mg capsule PO vitamin E mixed 400 unit capsule PO triphale PO Rx Instructions: tonic with taylor, tumeric, soboba juice floravital PO horsetail tea PO Chelated Magnesium 200 mg PO DAILY cholecalciferol (vitamin D3) [Vitamin D3] 125 mcg (5,000 unit) tablet 125 mcg PO DAILY Patient Comments: Take in winter during short daylight months Referrals: David Saldivar MD [Primary Care Provider] - Stand Alone Forms: Patient Portal/API/Survey
[2024-06-26 10:12] LABS: Alanine Aminotransferase 29 IU/L (<35); Albumin 4.7 g/dL (3.5-5.0); Albumin Globulin Ratio 1.3 (1.0-2.8); Alkaline Phosphatase 84 U/L (38-126); Aspartate Aminotransferase 43 IU/L (14-36); BUN Creatinine Ratio 17.4 (6-22); Bilirubin Total 0.9 mg/dL (0.2-1.3); Blood Urea Nitrogen 12 mg/dL (7-17); Calcium 9.9 mg/dL (8.4-10.2); Carbon Dioxide 24 mmol/L (22-32); Chloride 106 mmol/L (98-107); Creatine Kinase 60 U/L (30-135); Estimated Glomerular Filt Rate > 60 mL/min (>60); Globulin 3.5 g/dL (1.7-4.1); Glucose 119 mg/dL (80-110); HEMOLYSIS < 15 (0-50); Lipase 105 U/L (23-300); Magnesium 2.1 mg/dL (1.6-2.3); Potassium 4.3 mmol/L (3.4-5.1); Sodium 140 mmol/L (137-145); Total Protein 8.2 g/dL (6.3-8.2)
[2024-06-26 10:24] LABS: NT-proBNP (BNP-Adult 18+) < 20 pg/mL (<450); Troponin I < 0.012 ng/mL (0.01-0.034)
[2024-06-26 11:43] LABS: Creatine Kinase 62 U/L (30-135)
[2024-06-26 11:56] LABS: Troponin I < 0.012 ng/mL (0.01-0.034)
== END 2024-06-26 12:54 | disposition home or self-care (01) ==
PROVIDERS: Emergency Provider Emergency Medicine; PCP Family Medicine
DX: R07.89 Other chest pain (principal); M54.6 Pain in thoracic spine; M79.602 Pain in left arm; Z86.73 Personal history of transient ischemic attack (TIA), and cerebral infarction without residual deficits
CPT/HCPCS: 36415; 71045; 80053; 82550; 83690; 83735; 83880; 84484; 85025; 85610; 85730; 93005; 99284

== ENCOUNTER → 2024-07-15 10:50 | Outpatient (CLI) | payer OTHER, SELFPAY ==
--- NOTE | 2024-07-15 10:51 | DI.RAD.S_ITS ---
PROCEDURE: XR SHOULDER RT MIN 2V INDICATIONS: RIGHT SHOULDER PAIN TECHNIQUE: 3 views of the shoulder were acquired. COMPARISON: [facility], CR, XR CHEST 1V, 06/23/2021, 15:15. FINDINGS: Bones: No acute fracture or dislocation at the shoulder. Old fractures of the right 6th through 8th posterior lateral ribs. Mild glenohumeral joint degenerative change. No suspicious bony lesions. Visualized ribs appear intact. Soft tissues: No suspicious soft tissue calcifications. IMPRESSION: Old rib fractures. No acute bony abnormality involving the shoulder. Mild glenohumeral joint degenerative change. Dictated by: Anton Fischer M.D. on 07/15/2024 at 11:17 Approved by: Anton Fischer M.D. on 07/15/2024 at 11:24
== END ==
PROVIDERS: PCP Family Medicine; Referring Provider Physical Medicine & Rehabilitation; Visit Provider Physical Medicine & Rehabilitation
DX: M47.816 Spondylosis without myelopathy or radiculopathy, lumbar region (principal); M51.369 Other intervertebral disc degeneration, lumbar region without mention of lumbar back pain or lower extremity pain; S22.41XS Multiple fractures of ribs, right side, sequela
CPT/HCPCS: 73030

== ENCOUNTER → 2024-07-17 12:27 | Outpatient (CLI) | payer OTHER, SELFPAY ==
--- NOTE | 2024-07-17 12:28 | DI.RAD.S_ITS ---
PROCEDURE: XR CERVICAL SPINE 4V OR 5V INDICATIONS: impngement TECHNIQUE: 6 views of the cervical spine acquired. COMPARISON: None. FINDINGS: Bones: There is no fracture or dislocation. Degenerative endplate changes, loss of disc height and bilateral uncovertebral hypertrophic changes throughout cervical spine is seen. Oblique images demonstrate bilateral neural foraminal narrowing at C4-5 and C5-6 levels. Soft tissues: No prevertebral soft tissue swelling. IMPRESSION: Degenerative disc disease throughout cervical spine. No acute fracture or dislocation. Suggestion of left worse than right bilateral bony foraminal stenosis at C4-5 and C5-6 levels seen on oblique views. Dictated by: Ej Hathaway M.D. on 07/17/2024 at 15:04 Approved by: Ej Hathaway M.D. on 07/17/2024 at 15:05
--- NOTE | 2024-07-17 12:28 | DI.RAD.S_ITS ---
PROCEDURE: XR SHOULDER LT MIN 2V INDICATIONS: impngement TECHNIQUE: 3 views of the shoulder were acquired. COMPARISON: [facility], CR, XR SHOULDER RT MIN 2V, 07/15/2024, 11:01. FINDINGS: Bones: No fractures or dislocations. No suspicious bony lesions. Visualized ribs appear intact. Mild acromioclavicular osteoarthrosis. No significant narrowing of the subacromial space. Soft tissues: No suspicious soft tissue calcifications. IMPRESSION: No acute bony abnormality. Mild left acromioclavicular osteoarthrosis. Dictated by: Gelacio Michelle M.D. on 07/18/2024 at 2:10 Approved by: Gelacio Michelle M.D. on 07/18/2024 at 2:11
== END ==
PROVIDERS: PCP Family Medicine; Referring Provider Physical Medicine & Rehabilitation; Visit Provider Physical Medicine & Rehabilitation
DX: M75.42 Impingement syndrome of left shoulder (principal); M19.012 Primary osteoarthritis, left shoulder; M47.22 Other spondylosis with radiculopathy, cervical region; M50.10 Cervical disc disorder with radiculopathy, unspecified cervical region
CPT/HCPCS: 72050; 73030

== ENCOUNTER 2024-09-23 10:45 | Outpatient (RCR) | payer OTHER, SELFPAY ==
--- NOTE | 2024-08-29 15:55 | PT.OIE ---
Current Diagnoses Stiffness of left shoulder, not elsewhere classified (08/29/24) Stiffness of other specified joint, not elsewhere classified (08/29/24) Other spondylosis with radiculopathy, cervical region (08/29/24) Impingement syndrome of left shoulder (08/29/24) Weakness (08/29/24) Past Medical History (Last Reviewed 07/16/24 @ 11:46 by Christiano Burciaga DO) Actinic keratosis (~1984) Bilateral hand pain Borderline hypertension Cervical spondylosis with radiculopathy Chronic low back pain Depression (~1978) Human papillomavirus (~2014) Impingement syndrome of left shoulder Lumbar degenerative disc disease Lumbosacral spondylosis with radiculopathy Mild pulmonary valve regurgitation Seasonal allergies (~1967) Spondylosis of lumbar spine Thyroid nodule (~2019) Past Surgical History (Last Reviewed 07/16/24 @ 11:46 by Christiano Burciaga DO) Anesthesia H/O tooth extraction (~1959) History of appendectomy (~1954) History of tonsillectomy (~1968) Previous (~1969) Previous (~1970) Visit Care Team Role Provider Type David Saldivar MD Family Provider Physician Primary Care Provider Specialty: Family Practice Address: [address] [place] [address] Email: [email or web address] Christiano Burciaga DO Attending Provider Physician Referring Provider Specialty: Interventional Radiology Physiatry Pain Management Address: [address] [place] [address], [facility] Email: [email or web address] Physical Therapy Initial Evaluation PT-OP-A Visit Information Start: 08/29/24 10:03 Freq: Status: Active Protocol: Document 08/29/24 12:59 NM (Rec: 08/29/24 13:49 NM [id number]) Out-Patient Physical Therapy Visit Information Visit Information Visit Type Initial Evaluation Visit Start Time 13:03 Visit Stop Time 13:45 Visit Number 08/27 Evaluation Information Evaluation Date 08/29/24 Precautions Precautions osteoporosis; hx of TIAs PT-OP-B Current Condition Start: 08/29/24 10:03 Freq: Status: Active Protocol: Document 08/29/24 12:59 NM (Rec: 08/29/24 13:49 NM [id number]) Current Condition History of Current Condition Onset Date 1-2 months ago History of Current Condition Pt presents with intermittent sharp pain from her neck to her R or L side. No numbness or tingling. Intermittent variables with length of time. She is L handed. Pain occurs very suddenly, has achiness. MILDRED removing a jar 1-2 months ago. Tends to worsen each episode. Early July was the worst episode. She participates in yoga, unsure if helping. She does report soreness in her neck. Pt started pilates, makes her neck sore, especially UE exercises. Pt does report a hx of tension in her shoulders and neck. Occurs with opening jars, lifting, carrying, reaching. Most recent episode at [place] but did have a mild episode several days ago. Has not noticed in changes to her strength. On 07/29, had episode where unable to lift her arm, pain was in her chest ; she called 9-1-1. Had ED visit, no significant work up but did have chest pain for about a week; worse with cervical flexion. Has follow up with Dr. Burciaga in a few weeks; suggested work with Jennifer [address] [employer]. Current Functional Impairments (Reported) Functional Limitations- Recreation/ participates in pilates, yoga; Hobbies hiking c/ hiking stick(s); ambulation (flat surfaces are challenging) PT-OP-C Subjective Start: 08/29/24 10:03 Freq: Status: Active Protocol: Document 08/29/24 12:59 NM (Rec: 08/29/24 13:49 NM [id number]) OP-PT Subjective Patient Comments Patient Comments Pt consents to participate in PT evaluation Patient Questionnaires Neck Disability Index NDI Score did not complete Quick Dash- Upper Extremity Quick Dash UE Score 6.8% impairment PT-OP-E Functional Tests Start: 08/29/24 10:03 Freq: Status: Active Protocol: Document 08/29/24 12:59 NM (Rec: 08/29/24 15:51 NM [id number]) Functional Tests Apley's Scratch Test Action 1- Left R AC jt Action 1- Right L AC jt Action 2- Left C7 Action 2- Right C5 Action 3- Left T9 Action 3- Right T7 PT-OP-F Manual Assessment Start: 08/29/24 10:03 Freq: Status: Active Protocol: Document 08/29/24 12:59 NM (Rec: 08/29/24 15:51 NM [id number]) Manual Assessments Soft Tissue Assessment Soft Tissue Mobility Assessment Upper cross positioning; increased restrictions present on pecs, cervical paraspinals , periscapulars Joint Mobility Assessment Joint Mobility Assessment Decreased B glenohumeral joint and cervicothoracic mobility, limited scapular mobility PT-OP-G Mobility & Gait Start: 08/29/24 10:03 Freq: Status: Active Protocol: Document 08/29/24 12:59 NM (Rec: 08/29/24 15:51 NM [id number]) OP Gait Assessment Comments Gait Comments Forward trunk positioning, very stiff thoracic trunk with limited arm swing PT-OP-J Posture/Palpation/Skin Start: 08/29/24 10:03 Freq: Status: Active Protocol: Document 08/29/24 12:59 NM (Rec: 08/29/24 15:51 NM [id number]) Posture Evaluation Position Standing Head/C-Spine Posture Forward Head T-Spine Posture Increased Kyphosis L-Spine Posture Decreased Lordosis Shoulder Posture (L) Rounded,(R) Rounded,(R) Elevated Arm Posture (L) Neutral,(R) Neutral Pelvis Posture Posterior Tilted Palpation Assessment Location B shoulders Palpation Details R more limited than L- periscapulars, rotator cuff especially infraspinatus and teres/lat, rhomboids L less restricted especially at rotator cuff, still restricted at periscapulars cervical spine Palpation Details tightness of paraspinals, suboccipitals, scalenes PT-OP-K Range of Motion Start: 08/29/24 10:03 Freq: Status: Active Protocol: Document 08/29/24 12:59 NM (Rec: 08/29/24 13:49 NM [id number]) Cervical Spine Range of Motion Cervical Spine Active Degrees Flexion 50 Extension 40 Rotation Left 65 Rotation Right 65 Lateral Flexion Left 40 Lateral Flexion Right 40 ROM Limitations Soft Tissue Tightness Comments compensations with trunk Shoulder Goniometric Range of Motion Shoulder Right Flexion 150 Abduction 140 Internal Rotation Behind Back (text) T7 Comments ER to C5 Left Flexion 140 Abduction 130 Internal Rotation Behind Back (text) T9 Comments ER to C7 PT-OP-L Special Tests Start: 08/29/24 10:03 Freq: Status: Active Protocol: Document 08/29/24 12:59 NM (Rec: 08/29/24 13:49 NM [id number]) Special Tests Cervical Spine Special Tests Transverse Ligament Test Results no increased mobility B Alar Ligament Test Results no increased mobility B Traction Test Results + Comments changes breathing Spurling's Test Test Results + Comments R Shoulder Special Tests Neer Impingement Test Results - Capps Benigno Impingement Test Results - PT-OP-M Strength Start: 08/29/24 10:03 Freq: Status: Active Protocol: Document 08/29/24 12:59 NM (Rec: 08/29/24 13:49 NM [id number]) Shoulder Strength Shoulder Manual Muscle Testing Right Flexion 4- Good- Abduction (C5) 4- Good- External Rotation 4- Good- Internal Rotation 4- Good- Left Flexion 4- Good- Abduction (C5) 4- Good- External Rotation 4- Good- Internal Rotation 4- Good- Elbow/Forearm Strength Elbow and Forearm Manual Muscle Testing Right Flexion (C6) 4+ Good+ Extension (C7) 4+ Good+ Left Flexion (C6) 4+ Good+ Extension (C7) 4+ Good+ Wrist Strength Wrist Manual Muscle Testing Right Flexion (C7) 4+ Good+ Extension (C6) 4+ Good+ Left Flexion (C7) 4+ Good+ Extension (C6) 4+ Good+ PT-OP-Q Treatments Start: 08/29/24 10:03 Freq: Status: Active Protocol: Document 08/29/24 12:59 NM (Rec: 08/29/24 13:49 NM [id number]) Manual Therapy Treatment Consent Patient gave verbal consent for manual Yes treatment Soft Tissue Mobilization B shoulders Body Location rotator cuff, trap, rhomboids, trapezius, lats Mobilization Type Rolling,Sustained Pressure Intensity/Depth Superficial Body Position Sidelying Comments R shoulder more restricted at rotator cuff, latissimus/ subscapularis, rhomboids. Several trigger points present . Reduced but not resolved with manual treatment L shoulder less restricted at rotator cuff, but still demos several restrictions at periscapulars Frequent monitoring for pain and intensity Self-Care/Home Management Treatment Education Other Education Brief education provided about osteoporosis and exercise, especially with positions to avoid including overhead lifting and full thoracic rotation and extension due to risk of compression fractures PT-OP-T Assessment and Plan Start: 08/29/24 10:03 Freq: Status: Active Protocol: Document 08/29/24 12:59 NM (Rec: 08/29/24 13:49 NM [id number]) Physical Therapy Assessment Rehab Potential Rehabilitation Potential Good Evaluation Complexity Clinical Presentation at Evaluation Stable Impairments Impairments Activity Tolerance,Functional Activities,Functional Mobility ,Gait,Integument,Pain,Posture, ROM,Sensation,Soft Tissue Mobility,Strength,Vestibular, Visual Motor Other Concerns Age Related Concerns PMH: back pain, depression, headaches, 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, osteoporosis, 2 TIAs, surgeries (appendectomy, tonsillectomy, abortions), GERD Goals Four Impairment postural restrictions, osteoporosis education Short Term Goal (STG) Pt will be educated on osteoporosis-safe exercises and postural activities to promote increased safety during exercise STG Duration 3 weeks Three Impairment cervical spine rotation limited 65 deg Plug Cutter Goal (LTG) Pt will improve B cervical spine rotation >65 deg in order to improve visual scanning LTG Duration 8 weeks Two Impairment limitations in L shoulder ROM: 140 deg flex, 130 deg abd Plug Cutter Goal (LTG) Pt will increase L shoulder ROM to at least 105 deg in order to improve ability to perform pilates and reaching ADLs LTG Duration 8 weeks One Impairment not performing HEP Plug Cutter Goal (LTG) Pt will report compliance with HEP at least 3x/wk in order to maximize progression with PT and transition to maintenance program upon discharge LTG Duration 8 weeks Assessment Summary Assessment Pt is a 74 y.o. presenting with intermittent sharp bilateral shoulder pain that radiates from her shoulders to her hands. Pt has limitations with B shoulder ROM and cervical ROM, especially into rotation. Pt's posture is moderately kyphotic, which limits pt her mobility in her cervicothoracic, ribs, and shoulders. She also has osteoporosis, which further impacts her posture and rehabilitation progression. Pt has minimal limitations with her strength. Symptoms are mildly reproduced with spurling's and with palpation of trigger points along her periscapulars and rotator cuff . Pt does not have numbness or tingling. Her symptoms are consistent with dx. PT educated pt on exam findings and plan of care. Pt would benefit from skilled PT in order to improve flexibility and strength in order to improve symptom management. Physical Therapy Plan Frequency and Duration Frequency of Treatment 2x/Week Duration of treatment (weeks) 8 Plan of Care Start Date 08/29/24 Plan of Care End Date 10/31/24 Therapeutic Interventions Therapeutic Interventions Balance Training,Gait Training ,Home Exercise Program,Joint Mobilizations,Manual Therapy, Neuromuscular Re-education, Orthotic/Prosthetic Management ,Patient/Caregiver Education, Self-Care/Home Management, Sensory Integration,Soft Tissue Mobilization,Taping, Therapeutic Activities, Therapeutic Exercises Modalities Cold Pack/Ice Massage,Electric Stimulation,Hot Packs, Ultrasound Other Therapeutic Interventions No grade IV mobilizations due to osteoporosis Next Visit Focus/Plan Next Note Type Treatment Note Next Visit Plan osteoporosis- limit trunk flexion and repetitive trunk rotation vertebral a screen. thoracic ext and mobility as tolerated. closed chain rotator cuff, extension based exercises discuss safety with pilates due to osteoporosis
--- NOTE | 2024-08-29 15:56 | PT.OPPOC ---
Physical, Occupational & Speech Therapy At [facility] Current Diagnoses Stiffness of left shoulder, not elsewhere classified (08/29/24) Stiffness of other specified joint, not elsewhere classified (08/29/24) Other spondylosis with radiculopathy, cervical region (08/29/24) Impingement syndrome of left shoulder (08/29/24) Weakness (08/29/24) Visit Care Team Role Provider Type David Saldivar MD Family Provider Physician Primary Care Provider Specialty: Family Practice Address: [address] [place] [address], [id number] Email: [email or web address] Burciaga DO Attending Provider Physician Referring Provider Specialty: Interventional Radiology Physiatry Pain Management Address: [address] [place] [address], [id number] Email: [email or web address] Plan Of Care PT-OP-B Current Condition Start: 08/29/24 10:03 Freq: Status: Active Protocol: Document 08/29/24 12:59 NM (Rec: 08/29/24 13:49 NM [id number]) Current Condition History of Current Condition Onset Date 1-2 months ago History of Current Condition Pt presents with intermittent sharp pain from her neck to her R or L side. No numbness or tingling. Intermittent variables with length of time. She is L handed. Pain occurs very suddenly, has achiness. MILDRED removing a jar 1-2 months ago. Tends to worsen each episode. Early July was the worst episode. She participates in yoga, unsure if helping. She does report soreness in her neck. Pt started pilates, makes her neck sore, especially UE exercises. Pt does report a hx of tension in her shoulders and neck. Occurs with opening jars, lifting, carrying, reaching. Most recent episode at [facility] but did have a mild episode several days ago. Has not noticed in changes to her strength. On 07/29, had episode where unable to lift her arm, pain was in her chest ; she called 9-1-1. Had ED visit, no significant work up but did have chest pain for about a week; worse with cervical flexion. Has follow up with Dr. Burciaga in a few weeks; suggested work with Jennifer [email or web address]. Current Functional Impairments (Reported) Functional Limitations- Recreation/ participates in pilates, yoga; Hobbies hiking c/ hiking stick(s); ambulation (flat surfaces are challenging) PT-OP-T Assessment and Plan Start: 08/29/24 10:03 Freq: Status: Active Protocol: Document 08/29/24 12:59 NM (Rec: 08/29/24 13:49 NM [id number]) Physical Therapy Assessment Rehab Potential Rehabilitation Potential Good Evaluation Complexity Clinical Presentation at Evaluation Stable Impairments Impairments Activity Tolerance,Functional Activities,Functional Mobility ,Gait,Integument,Pain,Posture, ROM,Sensation,Soft Tissue Mobility,Strength,Vestibular, Visual Motor Other Concerns Age Related Concerns PMH: back pain, depression, headaches, 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, osteoporosis, 2 TIAs, surgeries (appendectomy, tonsillectomy, abortions), GERD Goals Four Impairment postural restrictions, osteoporosis education Short Term Goal (STG) Pt will be educated on osteoporosis-safe exercises and postural activities to promote increased safety during exercise STG Duration 3 weeks Three Impairment cervical spine rotation limited 65 deg Hall Monitor Goal (LTG) Pt will improve B cervical spine rotation >65 deg in order to improve visual scanning LTG Duration 8 weeks Two Impairment limitations in L shoulder ROM: 140 deg flex, 130 deg abd Hall Monitor Goal (LTG) Pt will increase L shoulder ROM to at least 105 deg in order to improve ability to perform pilates and reaching ADLs LTG Duration 8 weeks One Impairment not performing HEP Hall Monitor Goal (LTG) Pt will report compliance with HEP at least 3x/wk in order to maximize progression with PT and transition to maintenance program upon discharge LTG Duration 8 weeks Assessment Summary Assessment Pt is a 74 y.o. presenting with intermittent sharp bilateral shoulder pain that radiates from her shoulders to her hands. Pt has limitations with B shoulder ROM and cervical ROM, especially into rotation. Pt's posture is moderately kyphotic, which limits pt her mobility in her cervicothoracic, ribs, and shoulders. She also has osteoporosis, which further impacts her posture and rehabilitation progression. Pt has minimal limitations with her strength. Symptoms are mildly reproduced with spurling's and with palpation of trigger points along her periscapulars and rotator cuff . Pt does not have numbness or tingling. Her symptoms are consistent with dx. PT educated pt on exam findings and plan of care. Pt would benefit from skilled PT in order to improve flexibility and strength in order to improve symptom management. Physical Therapy Plan Frequency and Duration Frequency of Treatment 2x/Week Duration of treatment (weeks) 8 Plan of Care Start Date 08/29/24 Plan of Care End Date 10/31/24 Therapeutic Interventions Therapeutic Interventions Balance Training,Gait Training ,Home Exercise Program,Joint Mobilizations,Manual Therapy, Neuromuscular Re-education, Orthotic/Prosthetic Management ,Patient/Caregiver Education, Self-Care/Home Management, Sensory Integration,Soft Tissue Mobilization,Taping, Therapeutic Activities, Therapeutic Exercises Modalities Cold Pack/Ice Massage,Electric Stimulation,Hot Packs, Ultrasound Other Therapeutic Interventions No grade IV mobilizations due to osteoporosis Next Visit Focus/Plan Next Note Type Treatment Note Next Visit Plan osteoporosis- limit trunk flexion and repetitive trunk rotation vertebral a screen. thoracic ext and mobility as tolerated. closed chain rotator cuff, extension based exercises discuss safety with pilates due to osteoporosis Plan of Care Dates Plan of Care Start Date 08/29/24 Plan of Care End Date 10/31/24 Electronically Signed by: Rosalba Lama, PT 09/01/24 0844 If you are in agreement with this Plan of Care, please return a signed and dated copy. I have reviewed this Plan of Care and certify that the skilled therapy services above are required to meet the patient?s needs. Physician Signature Date Printed Name and Credentials Clinical Instructor Signature Printed Name and Credentials
--- NOTE | 2024-09-01 15:35 | PT.OTN ---
Current Diagnoses Stiffness of left shoulder, not elsewhere classified (09/12/24) Stiffness of other specified joint, not elsewhere classified (09/12/24) Other spondylosis with radiculopathy, cervical region (09/12/24) Impingement syndrome of left shoulder (09/12/24) Weakness (09/12/24) Physical Therapy Treatment Note PT-OP-A Visit Information Start: 08/29/24 10:03 Freq: Status: Active Protocol: Document 09/18/24 12:14 NM (Rec: 09/01/24 14:34 NM [id number]) Out-Patient Physical Therapy Visit Information Visit Information Visit Type Treatment Note Visit Note 134/77 mmHg, 97%, 79 heart murmur Visit Start Time 13:49 Visit Stop Time 14:30 Visit Number 09/27 Evaluation Information Evaluation Date 08/29/24 Precautions Precautions osteoporosis; hx of TIAs PT-OP-B Current Condition Start: 08/29/24 10:03 Freq: Status: Active Protocol: Document 08/29/24 12:59 NM (Rec: 08/29/24 13:49 NM [id number]) Current Condition History of Current Condition Onset Date 1-2 months ago History of Current Condition Pt presents with intermittent sharp pain from her neck to her R or L side. No numbness or tingling. Intermittent variables with length of time. She is L handed. Pain occurs very suddenly, has achiness. MILDRED removing a jar 1-2 months ago. Tends to worsen each episode. Early July was the worst episode. She participates in yoga, unsure if helping. She does report soreness in her neck. Pt started pilates, makes her neck sore, especially UE exercises. Pt does report a hx of tension in her shoulders and neck. Occurs with opening jars, lifting, carrying, reaching. Most recent episode at [place] but did have a mild episode several days ago. Has not noticed in changes to her strength. On 07/29, had episode where unable to lift her arm, pain was in her chest ; she called 9-1-1. Had ED visit, no significant work up but did have chest pain for about a week; worse with cervical flexion. Has follow up with Dr. Burciaga in a few weeks; suggested work with Jennifer [email or web address]. Current Functional Impairments (Reported) Functional Limitations- Recreation/ participates in pilates, yoga; Hobbies hiking c/ hiking stick(s); ambulation (flat surfaces are challenging) PT-OP-C Subjective Start: 08/29/24 10:03 Freq: Status: Active Protocol: Document 09/18/24 12:14 NM (Rec: 09/01/24 14:34 NM [id number]) OP-PT Subjective Patient Comments Patient Comments Pt reports no soreness into session, mild soreness in R shoulder. States sore while working with foam roller PT-OP-E Functional Tests Start: 08/29/24 10:03 Freq: Status: Active Protocol: Document 08/29/24 12:59 NM (Rec: 08/29/24 15:51 NM [id number]) Functional Tests Apley's Scratch Test Action 1- Left R AC jt Action 1- Right L AC jt Action 2- Left C7 Action 2- Right C5 Action 3- Left T9 Action 3- Right T7 PT-OP-F Manual Assessment Start: 08/29/24 10:03 Freq: Status: Active Protocol: Document 08/29/24 12:59 NM (Rec: 08/29/24 15:51 NM [id number]) Manual Assessments Soft Tissue Assessment Soft Tissue Mobility Assessment Upper cross positioning; increased restrictions present on pecs, cervical paraspinals , periscapulars Joint Mobility Assessment Joint Mobility Assessment Decreased B glenohumeral joint and cervicothoracic mobility, limited scapular mobility PT-OP-G Mobility & Gait Start: 08/29/24 10:03 Freq: Status: Active Protocol: Document 08/29/24 12:59 NM (Rec: 08/29/24 15:51 NM [id number]) OP Gait Assessment Comments Gait Comments Forward trunk positioning, very stiff thoracic trunk with limited arm swing PT-OP-J Posture/Palpation/Skin Start: 08/29/24 10:03 Freq: Status: Active Protocol: Document 08/29/24 12:59 NM (Rec: 08/29/24 15:51 NM [id number]) Posture Evaluation Position Standing Head/C-Spine Posture Forward Head T-Spine Posture Increased Kyphosis L-Spine Posture Decreased Lordosis Shoulder Posture (L) Rounded,(R) Rounded,(R) Elevated Arm Posture (L) Neutral,(R) Neutral Pelvis Posture Posterior Tilted Palpation Assessment Location B shoulders Palpation Details R more limited than L- periscapulars, rotator cuff especially infraspinatus and teres/lat, rhomboids L less restricted especially at rotator cuff, still restricted at periscapulars cervical spine Palpation Details tightness of paraspinals, suboccipitals, scalenes PT-OP-K Range of Motion Start: 08/29/24 10:03 Freq: Status: Active Protocol: Document 08/29/24 12:59 NM (Rec: 08/29/24 13:49 NM [id number]) Cervical Spine Range of Motion Cervical Spine Active Degrees Flexion 50 Extension 40 Rotation Left 65 Rotation Right 65 Lateral Flexion Left 40 Lateral Flexion Right 40 ROM Limitations Soft Tissue Tightness Comments compensations with trunk Shoulder Goniometric Range of Motion Shoulder Right Flexion 150 Abduction 140 Internal Rotation Behind Back (text) T7 Comments ER to C5 Left Flexion 140 Abduction 130 Internal Rotation Behind Back (text) T9 Comments ER to C7 PT-OP-L Special Tests Start: 08/29/24 10:03 Freq: Status: Active Protocol: Document 09/18/24 12:14 NM (Rec: 09/01/24 16:01 NM [id number]) Special Tests Cervical Spine Special Tests Vertebral artery screen Test Results BP 134/77 mmHg, WFL ausc/ palpation of carotid and cardiac (L prominent) Comments intact cranial and peripheral nn., no end range positional test d/t hx TIA PT-OP-M Strength Start: 08/29/24 10:03 Freq: Status: Active Protocol: Document 08/29/24 12:59 NM (Rec: 08/29/24 13:49 NM [id number]) Shoulder Strength Shoulder Manual Muscle Testing Right Flexion 4- Good- Abduction (C5) 4- Good- External Rotation 4- Good- Internal Rotation 4- Good- Left Flexion 4- Good- Abduction (C5) 4- Good- External Rotation 4- Good- Internal Rotation 4- Good- Elbow/Forearm Strength Elbow and Forearm Manual Muscle Testing Right Flexion (C6) 4+ Good+ Extension (C7) 4+ Good+ Left Flexion (C6) 4+ Good+ Extension (C7) 4+ Good+ Wrist Strength Wrist Manual Muscle Testing Right Flexion (C7) 4+ Good+ Extension (C6) 4+ Good+ Left Flexion (C7) 4+ Good+ Extension (C6) 4+ Good+ PT-OP-Q Treatments Start: 08/29/24 10:03 Freq: Status: Active Protocol: Document 09/18/24 12:14 NM (Rec: 09/01/24 14:34 NM [id number]) Therapeutic Exercises Supine Exercises foam roller Supine Exercise Name HEP review (from [facility]oll[facility]) for safety: hip flex, glutes, abds , calves, astorga Side bilateral Equipment Used TS ext Reps/Minutes 5 min Comments education on spinal position, posture for safety; modified for pain cervical retraction Supine Exercise Name HEP- initiated in PT Side bilateral Equipment Used head on pillow Reps/Minutes 15x1 Comments verbal and tactile cues Sitting Exercises scapular retraction Sitting Exercise Name w/ adduction Side bilateral Equipment Used w/ cervical retraction Reps/Minutes 15x3 Standing Exercises rows Standing Exercise Name next session Manual Therapy Treatment Consent Patient gave verbal consent for manual Yes treatment Soft Tissue Mobilization cervical spine Body Location paraspinals, LS, trap, suboccipitals Mobilization Type Myofascial Release,Rolling, Sustained Pressure Intensity/Depth Superficial Body Position Hooklying Comments Increased restrictions R>L. Monitored for pain. Educated on use of tennis balls or racquetballs in pillow case for home self soft tissue mobilization, education to avoid spine. Educated performing self STM on SCM at home B shoulders Body Location rotator cuff, trap, rhomboids, trapezius, lats Mobilization Type Rolling,Sustained Pressure Intensity/Depth Superficial Body Position Sidelying Comments R shoulder more restricted at rotator cuff, latissimus/ subscapularis, rhomboids. Several trigger points present . Reduced but not resolved with manual treatment L shoulder less restricted at rotator cuff, but still demos several restrictions at periscapulars Frequent monitoring for pain and intensity Joint Mobilizations scapular Joint B Direction adduction and retraction Grade III Body Position Hooklying Reps/Duration 10 ea Comments Limited by kyphosis L shoulder Joint GHJ Direction inf, post Grade II Body Position Hooklying Reps/Duration 2x10 PT-OP-T Assessment and Plan Start: 08/29/24 10:03 Freq: Status: Active Protocol: Document 09/18/24 12:14 NM (Rec: 09/01/24 14:34 NM [id number]) Physical Therapy Assessment Goals Four Impairment postural restrictions, osteoporosis education Short Term Goal (STG) Pt will be educated on osteoporosis-safe exercises and postural activities to promote increased safety during exercise STG Duration 3 weeks Three Impairment cervical spine rotation limited 65 deg Fdc Goal (LTG) Pt will improve B cervical spine rotation >65 deg in order to improve visual scanning LTG Duration 8 weeks Two Impairment limitations in L shoulder ROM: 140 deg flex, 130 deg abd Fdc Goal (LTG) Pt will increase L shoulder ROM to at least 105 deg in order to improve ability to perform pilates and reaching ADLs LTG Duration 8 weeks One Impairment not performing HEP Fdc Goal (LTG) Pt will report compliance with HEP at least 3x/wk in order to maximize progression with PT and transition to maintenance program upon discharge LTG Duration 8 weeks Assessment Summary Assessment Pt reports no pain during session. Emphasis on improving posterior chain muscle length and initiating periscapular strengthening. Restricted by thoracic kyphosis; will continue to assess in future sessions. Initiated scapular and L GHJ mobilizations to increased ROM for reaching and lifting, in addition to lengthening posterior cervical and periscapular muscle length. PT provided education to pt about foam roller exercises performed independently outside of session for safety. Pt would continue to benefit from skilled PT for progressive postural re-education and strengthening to improve symptom management. Physical Therapy Plan Frequency and Duration Frequency of Treatment 2x/Week Duration of treatment (weeks) 8 Plan of Care Start Date 08/29/24 Plan of Care End Date 10/31/24 Therapeutic Interventions Therapeutic Interventions Balance Training,Gait Training ,Home Exercise Program,Joint Mobilizations,Manual Therapy, Neuromuscular Re-education, Orthotic/Prosthetic Management ,Patient/Caregiver Education, Self-Care/Home Management, Sensory Integration,Soft Tissue Mobilization,Taping, Therapeutic Activities, Therapeutic Exercises Modalities Cold Pack/Ice Massage,Electric Stimulation,Hot Packs, Ultrasound Other Therapeutic Interventions No grade IV mobilizations due to osteoporosis Next Visit Focus/Plan Next Note Type Treatment Note Next Visit Plan Review HEP. Rows, low rows. wall posture, periscapular strengthening (trial ball) vs prone ext. Lat stretch, TS ext on ball, corner stretch. Foam roller trial for mobility closed chain rotator cuff discuss safety with pilates and yoga due to osteoporosis
--- NOTE | 2024-09-05 15:35 | PT.OTN ---
Current Diagnoses Stiffness of left shoulder, not elsewhere classified (09/05/24) Stiffness of other specified joint, not elsewhere classified (09/05/24) Other spondylosis with radiculopathy, cervical region (09/05/24) Impingement syndrome of left shoulder (09/05/24) Weakness (09/05/24) Physical Therapy Treatment Note PT-OP-A Visit Information Start: 08/29/24 10:03 Freq: Status: Active Protocol: Document 09/05/24 13:00 NM (Rec: 09/05/24 13:50 NM [id number]) Out-Patient Physical Therapy Visit Information Visit Information Visit Type Treatment Note Visit Start Time 13:02 Visit Stop Time 13:45 Visit Number 10/25 Evaluation Information Evaluation Date 08/29/24 Precautions Precautions osteoporosis; hx of TIAs PT-OP-B Current Condition Start: 08/29/24 10:03 Freq: Status: Active Protocol: Document 08/29/24 12:59 NM (Rec: 08/29/24 13:49 NM [id number]) Current Condition History of Current Condition Onset Date 1-2 months ago History of Current Condition Pt presents with intermittent sharp pain from her neck to her R or L side. No numbness or tingling. Intermittent variables with length of time. She is L handed. Pain occurs very suddenly, has achiness. MILDRED removing a jar 1-2 months ago. Tends to worsen each episode. Early July was the worst episode. She participates in yoga, unsure if helping. She does report soreness in her neck. Pt started pilates, makes her neck sore, especially UE exercises. Pt does report a hx of tension in her shoulders and neck. Occurs with opening jars, lifting, carrying, reaching. Most recent episode at [place] but did have a mild episode several days ago. Has not noticed in changes to her strength. On 07/29, had episode where unable to lift her arm, pain was in her chest ; she called 9-1-1. Had ED visit, no significant work up but did have chest pain for about a week; worse with cervical flexion. Has follow up with Dr. Burciaga in a few weeks; suggested work with Jennifer [email or web address]. Current Functional Impairments (Reported) Functional Limitations- Recreation/ participates in pilates, yoga; Hobbies hiking c/ hiking stick(s); ambulation (flat surfaces are challenging) PT-OP-C Subjective Start: 08/29/24 10:03 Freq: Status: Active Protocol: Document 09/05/24 13:00 NM (Rec: 09/05/24 13:50 NM [id number]) OP-PT Subjective Patient Comments Patient Comments Pt reports a little low back soreness, which she reports is normal following a new exercise routine; reports no adjustment to any medications or anything. Reports that she has not had any of the shooting pain down her arms. 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 Able to go over safe exercises with [employer] instructors. Has cataract surgery planned 10/01 PT-OP-E Functional Tests Start: 08/29/24 10:03 Freq: Status: Active Protocol: Document 08/29/24 12:59 NM (Rec: 08/29/24 15:51 NM [id number]) Functional Tests Apley's Scratch Test Action 1- Left R AC jt Action 1- Right L AC jt Action 2- Left C7 Action 2- Right C5 Action 3- Left T9 Action 3- Right T7 PT-OP-F Manual Assessment Start: 08/29/24 10:03 Freq: Status: Active Protocol: Document 08/29/24 12:59 NM (Rec: 08/29/24 15:51 NM [id number]) Manual Assessments Soft Tissue Assessment Soft Tissue Mobility Assessment Upper cross positioning; increased restrictions present on pecs, cervical paraspinals , periscapulars Joint Mobility Assessment Joint Mobility Assessment Decreased B glenohumeral joint and cervicothoracic mobility, limited scapular mobility PT-OP-G Mobility & Gait Start: 08/29/24 10:03 Freq: Status: Active Protocol: Document 08/29/24 12:59 NM (Rec: 08/29/24 15:51 NM [id number]) OP Gait Assessment Comments Gait Comments Forward trunk positioning, very stiff thoracic trunk with limited arm swing PT-OP-J Posture/Palpation/Skin Start: 08/29/24 10:03 Freq: Status: Active Protocol: Document 08/29/24 12:59 NM (Rec: 08/29/24 15:51 NM [id number]) Posture Evaluation Position Standing Head/C-Spine Posture Forward Head T-Spine Posture Increased Kyphosis L-Spine Posture Decreased Lordosis Shoulder Posture (L) Rounded,(R) Rounded,(R) Elevated Arm Posture (L) Neutral,(R) Neutral Pelvis Posture Posterior Tilted Palpation Assessment Location B shoulders Palpation Details R more limited than L- periscapulars, rotator cuff especially infraspinatus and teres/lat, rhomboids L less restricted especially at rotator cuff, still restricted at periscapulars cervical spine Palpation Details tightness of paraspinals, suboccipitals, scalenes PT-OP-K Range of Motion Start: 08/29/24 10:03 Freq: Status: Active Protocol: Document 08/29/24 12:59 NM (Rec: 08/29/24 13:49 NM [id number]) Cervical Spine Range of Motion Cervical Spine Active Degrees Flexion 50 Extension 40 Rotation Left 65 Rotation Right 65 Lateral Flexion Left 40 Lateral Flexion Right 40 ROM Limitations Soft Tissue Tightness Comments compensations with trunk Shoulder Goniometric Range of Motion Shoulder Right Flexion 150 Abduction 140 Internal Rotation Behind Back (text) T7 Comments ER to C5 Left Flexion 140 Abduction 130 Internal Rotation Behind Back (text) T9 Comments ER to C7 PT-OP-L Special Tests Start: 08/29/24 10:03 Freq: Status: Active Protocol: Document 09/01/24 13:47 NM (Rec: 09/01/24 16:01 NM [id number]) Special Tests Cervical Spine Special Tests Vertebral artery screen Test Results BP 134/77 mmHg, WFL ausc/ palpation of carotid and cardiac (L prominent) Comments intact cranial and peripheral nn., no end range positional test d/t hx TIA PT-OP-M Strength Start: 08/29/24 10:03 Freq: Status: Active Protocol: Document 08/29/24 12:59 NM (Rec: 08/29/24 13:49 NM [id number]) Shoulder Strength Shoulder Manual Muscle Testing Right Flexion 4- Good- Abduction (C5) 4- Good- External Rotation 4- Good- Internal Rotation 4- Good- Left Flexion 4- Good- Abduction (C5) 4- Good- External Rotation 4- Good- Internal Rotation 4- Good- Elbow/Forearm Strength Elbow and Forearm Manual Muscle Testing Right Flexion (C6) 4+ Good+ Extension (C7) 4+ Good+ Left Flexion (C6) 4+ Good+ Extension (C7) 4+ Good+ Wrist Strength Wrist Manual Muscle Testing Right Flexion (C7) 4+ Good+ Extension (C6) 4+ Good+ Left Flexion (C7) 4+ Good+ Extension (C6) 4+ Good+ PT-OP-Q Treatments Start: 08/29/24 10:03 Freq: Status: Active Protocol: Document 09/05/24 13:00 NM (Rec: 09/05/24 13:50 NM [id number]) Therapeutic Exercises Sitting Exercises lat stretch Side bilateral Equipment Used elbows on //bar Reps/Minutes 2x30 ea Comments hip hinge, no trunk flexion Standing Exercises pec stretch Standing Exercise Name HEP -doorway: 1. low pec stretch, 2. 90/90 pec stretch, 3. high doorway Side bilateral Reps/Minutes 2x30 ea Comments pain free; wall posture Standing Exercise Name 1. tall wall posture w/ cervical retraction, 2. B ER AROM, 3. B ER w/ band Side bilateral Reps/Minutes 1. 2 min, 2. 10, 3. 15x3 Comments cued for symmetric; demos L lean tendency rows Standing Exercise Name HEP- 1. mid row, 2. low row Side bilateral Resistance level 2 band Reps/Minutes 20 ea Comments cued scap position/activation, core brace, no L lean; gave lvl 2/3 band HEP Self-Care/Home Management Treatment Education Patient Education Joint Protection,Safety Other Education 10 minutes- education provided using anatomical models about normal bony changes that occur w/ age, w/ osteoporosis, and w/ pt anatomy. Educated on reduction of repetitive forces on spine, including repeated trunk flexion and rotation oli with pilates exercises PT-OP-T Assessment and Plan Start: 08/29/24 10:03 Freq: Status: Active Protocol: Document 09/05/24 13:00 NM (Rec: 09/05/24 13:50 NM [id number]) Physical Therapy Assessment Goals Four Impairment postural restrictions, osteoporosis education Short Term Goal (STG) Pt will be educated on osteoporosis-safe exercises and postural activities to promote increased safety during exercise 09/05/24: education w/o handout provided on anatomy, limiting fwd trunk flexion and rotation STG Duration 3 weeks Three Impairment cervical spine rotation limited 65 deg [facility] Goal (LTG) Pt will improve B cervical spine rotation >65 deg in order to improve visual scanning LTG Duration 8 weeks Two Impairment limitations in L shoulder ROM: 140 deg flex, 130 deg abd [facility] Goal (LTG) Pt will increase L shoulder ROM to at least 105 deg in order to improve ability to perform pilates and reaching ADLs LTG Duration 8 weeks One Impairment not performing HEP [facility] Goal (LTG) Pt will report compliance with HEP at least 3x/wk in order to maximize progression with PT and transition to maintenance program upon discharge LTG Duration 8 weeks Assessment Summary Assessment Pt tolerated session well. Increased time spent on education today for safety during exercise and body mechanics. Initiated wall posture with emphasis on neutral spine and limiting tendency for L lean. Trialed periscapular activation at wall and with resistance bands ; intermittent cues for form and scapular facilitation. Pt would continue to benefit from skilled PT for improved postural education and strength. Plan to decrease PT frequency due to high co-pay; PT and pt in agreement. Physical Therapy Plan Frequency and Duration Frequency of Treatment 2x/Week Duration of treatment (weeks) 8 Plan of Care Start Date 08/29/24 Plan of Care End Date 10/31/24 Therapeutic Interventions Therapeutic Interventions Balance Training,Gait Training ,Home Exercise Program,Joint Mobilizations,Manual Therapy, Neuromuscular Re-education, Orthotic/Prosthetic Management ,Patient/Caregiver Education, Self-Care/Home Management, Sensory Integration,Soft Tissue Mobilization,Taping, Therapeutic Activities, Therapeutic Exercises Modalities Cold Pack/Ice Massage,Electric Stimulation,Hot Packs, Ultrasound Other Therapeutic Interventions No grade IV mobilizations due to osteoporosis Next Visit Focus/Plan Next Note Type Treatment Note Next Visit Plan Review HEP. Progress periscap strength and wall posture, trial prone extension exercises on floor vs ball. AAROM/AROM shoulder and cervical spine closed chain rotator cuff manual tx as needed
--- NOTE | 2024-09-12 14:31 | PT.OTN ---
Current Diagnoses Stiffness of left shoulder, not elsewhere classified (09/12/24) Stiffness of other specified joint, not elsewhere classified (09/12/24) Other spondylosis with radiculopathy, cervical region (09/12/24) Impingement syndrome of left shoulder (09/12/24) Weakness (09/12/24) Physical Therapy Treatment Note PT-OP-A Visit Information Start: 08/29/24 10:03 Freq: Status: Active Protocol: Document 09/12/24 13:02 NM (Rec: 09/12/24 13:48 NM [id number]) Out-Patient Physical Therapy Visit Information Visit Information Visit Type Progress Note Visit Start Time 13:02 Visit Stop Time 13:45 Visit Number 11/25 Evaluation Information Evaluation Date 08/29/24 PT-OP-B Current Condition Start: 08/29/24 10:03 Freq: Status: Active Protocol: Document 08/29/24 12:59 NM (Rec: 08/29/24 13:49 NM [id number]) Current Condition History of Current Condition Onset Date 1-2 months ago History of Current Condition Pt presents with intermittent sharp pain from her neck to her R or L side. No numbness or tingling. Intermittent variables with length of time. She is L handed. Pain occurs very suddenly, has achiness. MILDRED removing a jar 1-2 months ago. Tends to worsen each episode. Early July was the worst episode. She participates in yoga, unsure if helping. She does report soreness in her neck. Pt started pilates, makes her neck sore, especially UE exercises. Pt does report a hx of tension in her shoulders and neck. Occurs with opening jars, lifting, carrying, reaching. Most recent episode at [place] but did have a mild episode several days ago. Has not noticed in changes to her strength. On 07/29, had episode where unable to lift her arm, pain was in her chest ; she called 9-1-1. Had ED visit, no significant work up but did have chest pain for about a week; worse with cervical flexion. Has follow up with Dr. Burciaga in a few weeks; suggested work with Jennifer [email or web address]. Current Functional Impairments (Reported) Functional Limitations- Recreation/ participates in pilates, yoga; Hobbies hiking c/ hiking stick(s); ambulation (flat surfaces are challenging) PT-OP-C Subjective Start: 08/29/24 10:03 Freq: Status: Active Protocol: Document 09/12/24 13:02 NM (Rec: 09/12/24 13:48 NM [id number]) OP-PT Subjective Patient Comments Patient Comments Pt reports no changes from last week. Doing HEP, reports going well. She is still also doing pilates and alternating HEP/pilates. PT-OP-E Functional Tests Start: 08/29/24 10:03 Freq: Status: Active Protocol: Document 08/29/24 12:59 NM (Rec: 08/29/24 15:51 NM [id number]) Functional Tests Apley's Scratch Test Action 1- Left R AC jt Action 1- Right L AC jt Action 2- Left C7 Action 2- Right C5 Action 3- Left T9 Action 3- Right T7 PT-OP-F Manual Assessment Start: 08/29/24 10:03 Freq: Status: Active Protocol: Document 08/29/24 12:59 NM (Rec: 08/29/24 15:51 NM [id number]) Manual Assessments Soft Tissue Assessment Soft Tissue Mobility Assessment Upper cross positioning; increased restrictions present on pecs, cervical paraspinals , periscapulars Joint Mobility Assessment Joint Mobility Assessment Decreased B glenohumeral joint and cervicothoracic mobility, limited scapular mobility PT-OP-G Mobility & Gait Start: 08/29/24 10:03 Freq: Status: Active Protocol: Document 08/29/24 12:59 NM (Rec: 08/29/24 15:51 NM [id number]) OP Gait Assessment Comments Gait Comments Forward trunk positioning, very stiff thoracic trunk with limited arm swing PT-OP-J Posture/Palpation/Skin Start: 08/29/24 10:03 Freq: Status: Active Protocol: Document 08/29/24 12:59 NM (Rec: 08/29/24 15:51 NM [id number]) Posture Evaluation Position Standing Head/C-Spine Posture Forward Head T-Spine Posture Increased Kyphosis L-Spine Posture Decreased Lordosis Shoulder Posture (L) Rounded,(R) Rounded,(R) Elevated Arm Posture (L) Neutral,(R) Neutral Pelvis Posture Posterior Tilted Palpation Assessment Location B shoulders Palpation Details R more limited than L- periscapulars, rotator cuff especially infraspinatus and teres/lat, rhomboids L less restricted especially at rotator cuff, still restricted at periscapulars cervical spine Palpation Details tightness of paraspinals, suboccipitals, scalenes PT-OP-K Range of Motion Start: 08/29/24 10:03 Freq: Status: Active Protocol: Document 08/29/24 12:59 NM (Rec: 08/29/24 13:49 NM [id number]) Cervical Spine Range of Motion Cervical Spine Active Degrees Flexion 50 Extension 40 Rotation Left 65 Rotation Right 65 Lateral Flexion Left 40 Lateral Flexion Right 40 ROM Limitations Soft Tissue Tightness Comments compensations with trunk Shoulder Goniometric Range of Motion Shoulder Right Flexion 150 Abduction 140 Internal Rotation Behind Back (text) T7 Comments ER to C5 Left Flexion 140 Abduction 130 Internal Rotation Behind Back (text) T9 Comments ER to C7 PT-OP-L Special Tests Start: 08/29/24 10:03 Freq: Status: Active Protocol: Document 09/01/24 13:47 NM (Rec: 09/01/24 16:01 NM [id number]) Special Tests Cervical Spine Special Tests Vertebral artery screen Test Results BP 134/77 mmHg, WFL ausc/ palpation of carotid and cardiac (L prominent) Comments intact cranial and peripheral nn., no end range positional test d/t hx TIA PT-OP-M Strength Start: 08/29/24 10:03 Freq: Status: Active Protocol: Document 08/29/24 12:59 NM (Rec: 08/29/24 13:49 NM [id number]) Shoulder Strength Shoulder Manual Muscle Testing Right Flexion 4- Good- Abduction (C5) 4- Good- External Rotation 4- Good- Internal Rotation 4- Good- Left Flexion 4- Good- Abduction (C5) 4- Good- External Rotation 4- Good- Internal Rotation 4- Good- Elbow/Forearm Strength Elbow and Forearm Manual Muscle Testing Right Flexion (C6) 4+ Good+ Extension (C7) 4+ Good+ Left Flexion (C6) 4+ Good+ Extension (C7) 4+ Good+ Wrist Strength Wrist Manual Muscle Testing Right Flexion (C7) 4+ Good+ Extension (C6) 4+ Good+ Left Flexion (C7) 4+ Good+ Extension (C6) 4+ Good+ PT-OP-Q Treatments Start: 08/29/24 10:03 Freq: Status: Active Protocol: Document 09/12/24 13:02 NM (Rec: 09/12/24 13:48 NM [id number]) Therapeutic Exercises Supine Exercises shoulder flexion Supine Exercise Name lat stretch: 1. dowel, 2. w/ level 1 band Side bilateral Reps/Minutes 10 ea Comments pain free; cued neutral spine snow omid Side bilateral Reps/Minutes 10 Comments cued in plane w/ table; limited ROM Standing Exercises push up plus Standing Exercise Name HEP Side bilateral Reps/Minutes 15 Comments no pain Other Exercises bird dog Side bilateral self soft tissue mobilization Other Exercise Name trap, LS, rhomboid Side bilateral Reps/Minutes 1 min Comments HEP Manual Therapy Treatment Consent Patient gave verbal consent for manual Yes treatment Soft Tissue Mobilization cervical spine Body Location paraspinals, LS, trap, suboccipitals Mobilization Type Myofascial Release,Rolling, Sustained Pressure Intensity/Depth Superficial Body Position Hooklying Comments Increased restrictions R>L. Monitored for pain. B shoulders Body Location rotator cuff, trap, rhomboids, trapezius, lats, pec Mobilization Type Rolling,Sustained Pressure Intensity/Depth Superficial Body Position Sidelying Comments R shoulder more restricted at rotator cuff, latissimus/ subscapularis, rhomboids. Several trigger points present . L shoulder restricted more near lats, pect today. Joint Mobilizations L shoulder Joint GHJ Direction inf, post Grade III Body Position Hooklying Reps/Duration 4x30 ea Comments Improved mobility post mobilization; 150 deg pre mobilization PT-OP-T Assessment and Plan Start: 08/29/24 10:03 Freq: Status: Active Protocol: Document 09/12/24 13:02 NM (Rec: 09/12/24 13:48 NM [id number]) Physical Therapy Assessment Goals Four Impairment postural restrictions, osteoporosis education Short Term Goal (STG) Pt will be educated on osteoporosis-safe exercises and postural activities to promote increased safety during exercise 09/05/24: education w/o handout provided on anatomy, limiting fwd trunk flexion and rotation STG Duration 3 weeks MET Three Impairment cervical spine rotation limited 65 deg [employer] Goal (LTG) Pt will improve B cervical spine rotation >65 deg in order to improve visual scanning 09/12/24: 65 deg B post manual (65 deg R at start, 55 deg L at start) LTG Duration 8 weeks PROGRESSING Two Impairment limitations in L shoulder ROM: 140 deg flex, 130 deg abd [facility] Goal (LTG) Pt will increase L shoulder ROM to at least 150 deg in order to improve ability to perform pilates and reaching ADLs 09/12/24: 150 deg flex and abd LTG Duration 8 weeks MET One Impairment not performing HEP Jail Goal (LTG) Pt will report compliance with HEP at least 3x/wk in order to maximize progression with PT and transition to maintenance program upon discharge 09/12/24: performing every other day LTG Duration 8 weeks MET Assessment Summary Assessment Pt continues to respond well to strengthening and flexibility exercises. Good feedback to scapular activation and periscapular strengthening. Cueing needed for correct execution. However , improved with reps, minimal cueing needed. Progressed to wall push up and bird dog to improve pushing strength and posterior chain coordination. Pt and PT discussed discharge from PT next session as pt progressing well toward goals and compliant with PT. Pt met shoulder ROM goals, still progressing toward cervical spine ROM goals; limited by soft tissue mobility. Physical Therapy Plan Frequency and Duration Frequency of Treatment 2x/Week Duration of treatment (weeks) 8 Plan of Care Start Date 08/29/24 Plan of Care End Date 10/31/24 Therapeutic Interventions Therapeutic Interventions Balance Training,Gait Training ,Home Exercise Program,Joint Mobilizations,Manual Therapy, Neuromuscular Re-education, Orthotic/Prosthetic Management ,Patient/Caregiver Education, Self-Care/Home Management, Sensory Integration,Soft Tissue Mobilization,Taping, Therapeutic Activities, Therapeutic Exercises Modalities Cold Pack/Ice Massage,Electric Stimulation,Hot Packs, Ultrasound Other Therapeutic Interventions No grade IV mobilizations due to osteoporosis Next Visit Focus/Plan Next Note Type Discharge Summary Next Visit Plan Review HEP. lat pull down, review brid dog as needed. check cervical spine AROM. Progress periscap strength and wall posture, trial prone extension exercises on floor vs ball. AAROM/AROM shoulder and cervical spine closed chain rotator cuff manual tx as needed
--- NOTE | 2024-09-23 15:53 | PT.OTN ---
Current Diagnoses Stiffness of left shoulder, not elsewhere classified (09/23/24) Stiffness of other specified joint, not elsewhere classified (09/23/24) Other spondylosis with radiculopathy, cervical region (09/23/24) Impingement syndrome of left shoulder (09/23/24) Weakness (09/23/24) Physical Therapy Treatment Note PT-OP-A Visit Information Start: 08/29/24 10:03 Freq: Status: Active Protocol: Document 09/23/24 10:45 NM (Rec: 09/23/24 11:30 NM [id number]) Out-Patient Physical Therapy Visit Information Visit Information Visit Type Discharge Summary Visit Start Time 10:49 Visit Stop Time 11:27 Visit Number 12/25 Evaluation Information Evaluation Date 08/29/24 Precautions Precautions osteoporosis; hx of TIAs PT-OP-B Current Condition Start: 08/29/24 10:03 Freq: Status: Active Protocol: Document 08/29/24 12:59 NM (Rec: 08/29/24 13:49 NM [id number]) Current Condition History of Current Condition Onset Date 1-2 months ago History of Current Condition Pt presents with intermittent sharp pain from her neck to her R or L side. No numbness or tingling. Intermittent variables with length of time. She is L handed. Pain occurs very suddenly, has achiness. MILDRED removing a jar 1-2 months ago. Tends to worsen each episode. Early July was the worst episode. She participates in yoga, unsure if helping. She does report soreness in her neck. Pt started pilates, makes her neck sore, especially UE exercises. Pt does report a hx of tension in her shoulders and neck. Occurs with opening jars, lifting, carrying, reaching. Most recent episode at [facility] but did have a mild episode several days ago. Has not noticed in changes to her strength. On 07/29, had episode where unable to lift her arm, pain was in her chest ; she called 9-1-1. Had ED visit, no significant work up but did have chest pain for about a week; worse with cervical flexion. Has follow up with Dr. Burciaga in a few weeks; suggested work with [email or web address]. Current Functional Impairments (Reported) Functional Limitations- Recreation/ participates in pilates, yoga; Hobbies hiking c/ hiking stick(s); ambulation (flat surfaces are challenging) PT-OP-C Subjective Start: 08/29/24 10:03 Freq: Status: Active Protocol: Document 09/23/24 10:45 NM (Rec: 09/23/24 11:30 NM [id number]) OP-PT Subjective Patient Comments Patient Comments Pt reports minor comes and goes with pain on her R side, usually after waking up; better as day goes on. Pt reports that she is ready to be done with PT today, has been compliant with HEP. She reports that her muscle strength overall is continuing to decrease, planning to trial gym work. PT-OP-E Functional Tests Start: 08/29/24 10:03 Freq: Status: Active Protocol: Document 08/29/24 12:59 NM (Rec: 08/29/24 15:51 NM [id number]) Functional Tests Apley's Scratch Test Action 1- Left R AC jt Action 1- Right L AC jt Action 2- Left C7 Action 2- Right C5 Action 3- Left T9 Action 3- Right T7 PT-OP-F Manual Assessment Start: 08/29/24 10:03 Freq: Status: Active Protocol: Document 08/29/24 12:59 NM (Rec: 08/29/24 15:51 NM [id number]) Manual Assessments Soft Tissue Assessment Soft Tissue Mobility Assessment Upper cross positioning; increased restrictions present on pecs, cervical paraspinals , periscapulars Joint Mobility Assessment Joint Mobility Assessment Decreased B glenohumeral joint and cervicothoracic mobility, limited scapular mobility PT-OP-G Mobility & Gait Start: 08/29/24 10:03 Freq: Status: Active Protocol: Document 08/29/24 12:59 NM (Rec: 08/29/24 15:51 NM [id number]) OP Gait Assessment Comments Gait Comments Forward trunk positioning, very stiff thoracic trunk with limited arm swing PT-OP-J Posture/Palpation/Skin Start: 08/29/24 10:03 Freq: Status: Active Protocol: Document 08/29/24 12:59 NM (Rec: 08/29/24 15:51 NM [id number]) Posture Evaluation Position Standing Head/C-Spine Posture Forward Head T-Spine Posture Increased Kyphosis L-Spine Posture Decreased Lordosis Shoulder Posture (L) Rounded,(R) Rounded,(R) Elevated Arm Posture (L) Neutral,(R) Neutral Pelvis Posture Posterior Tilted Palpation Assessment Location B shoulders Palpation Details R more limited than L- periscapulars, rotator cuff especially infraspinatus and teres/lat, rhomboids L less restricted especially at rotator cuff, still restricted at periscapulars cervical spine Palpation Details tightness of paraspinals, suboccipitals, scalenes PT-OP-K Range of Motion Start: 08/29/24 10:03 Freq: Status: Active Protocol: Document 09/23/24 10:45 NM (Rec: 09/23/24 11:30 NM [id number]) Cervical Spine Range of Motion Cervical Spine Active Degrees Flexion 50 Extension 40 Rotation Left 65 Rotation Right 65 Lateral Flexion Left 40 Lateral Flexion Right 40 ROM Limitations Soft Tissue Tightness Comments compensations with trunk Shoulder Goniometric Range of Motion Shoulder Right Flexion 150 Abduction 140 Internal Rotation Behind Back (text) T7 Comments ER to C5 Left Flexion 160 Abduction 160 Internal Rotation Behind Back (text) T9 Comments ER to C7 PT-OP-L Special Tests Start: 08/29/24 10:03 Freq: Status: Active Protocol: Document 09/01/24 13:47 NM (Rec: 09/01/24 16:01 NM [id number]) Special Tests Cervical Spine Special Tests Vertebral artery screen Test Results BP 134/77 mmHg, WFL ausc/ palpation of carotid and cardiac (L prominent) Comments intact cranial and peripheral nn., no end range positional test d/t hx TIA PT-OP-M Strength Start: 08/29/24 10:03 Freq: Status: Active Protocol: Document 09/23/24 10:45 NM (Rec: 09/23/24 11:30 NM [id number]) Shoulder Strength Shoulder Manual Muscle Testing Right Flexion 4- Good- Abduction (C5) 4- Good- External Rotation 4- Good- Internal Rotation 4- Good- Left Flexion 4- Good- Abduction (C5) 4- Good- External Rotation 4- Good- Internal Rotation 4- Good- PT-OP-Q Treatments Start: 08/29/24 10:03 Freq: Status: Active Protocol: Document 09/23/24 10:45 NM (Rec: 09/23/24 11:30 NM [id number]) Therapeutic Exercises Sitting Exercises press Side bilateral Resistance 3# db ea hand Reps/Minutes 2x10 Comments cued form; sitting w/ back bicep curls Side bilateral Resistance 3# db ea hand Reps/Minutes 2x10 Standing Exercises lat pull down Standing Exercise Name W Side bilateral Resistance level 2 band > level 3 band Reps/Minutes 10 ea pallof press Side bilateral Resistance level 1 band Reps/Minutes 10 Comments pain free; maintains good form periscapular activation Standing Exercise Name 1. W, 2. V/Y off Side bilateral Equipment Used towel roll at head Reps/Minutes 2x10 c/ slight hold Comments cued no shoulder elevation; less scap/rom on V/Y raise Standing Exercise Name front raise Side bilateral Resistance 1# db Equipment Used back at wall Reps/Minutes 2x10 ea Comments cued posture Self-Care/Home Management Treatment Education Other Education Educated on gym equipment as pt interested in joining gym, in addition to education classes/individual exercise options on available to local community for resistance and impact training PT-OP-T Assessment and Plan Start: 08/29/24 10:03 Freq: Status: Active Protocol: Document 09/23/24 10:45 NM (Rec: 09/23/24 11:30 NM [id number]) Physical Therapy Assessment Goals Four Impairment postural restrictions, osteoporosis education Short Term Goal (STG) Pt will be educated on osteoporosis-safe exercises and postural activities to promote increased safety during exercise 09/05/24: education w/o handout provided on anatomy, limiting fwd trunk flexion and rotation STG Duration 3 weeks MET Three Impairment cervical spine rotation limited 65 deg Bacteriologist Dairy Goal (LTG) Pt will improve B cervical spine rotation >65 deg in order to improve visual scanning 09/12/24: 65 deg B post manual (65 deg R at start, 55 deg L at start) 09/23/24: 65 deg both LTG Duration 8 weeks PROGRESSING Two Impairment limitations in L shoulder ROM: 140 deg flex, 130 deg abd Bacteriologist Dairy Goal (LTG) Pt will increase L shoulder ROM to at least 150 deg in order to improve ability to perform pilates and reaching ADLs 09/12/24: 150 deg flex and abd 09/23/24: 160 deg flex and abd LTG Duration 8 weeks MET One Impairment not performing HEP Long-Term Goal (LTG) Pt will report compliance with HEP at least 3x/wk in order to maximize progression with PT and transition to maintenance program upon discharge 09/12/24: performing every other day LTG Duration 8 weeks MET Progress Towards Goals Progress Towards Goals Progressing Toward Goals,Goals Met Assessment Summary Assessment Pt tolerated session well. Emphasis on establishing maintenance HEP and providing education on UE strengthening while being mindful of limitations due to osteoporosis. PT provided education to pt on available resources for pt in community and for safety regarding limiting repetitive spinal flexion/rotation and postural education for exercises. Progressed to free weight resistance training and periscapular activation/ resistance training. Cueing needed for correct execution and to limit compensations. Due to kyphosis, wall exercises are performed with limited ROM. However, pain free for all. PT and pt discussed discharge today, both in agreement. Physical Therapy Plan Frequency and Duration Frequency of Treatment 2x/Week Duration of treatment (weeks) 8 Plan of Care Start Date 08/29/24 Plan of Care End Date 10/31/24 Therapeutic Interventions Therapeutic Interventions Balance Training,Gait Training ,Home Exercise Program,Joint Mobilizations,Manual Therapy, Neuromuscular Re-education, Orthotic/Prosthetic Management ,Patient/Caregiver Education, Self-Care/Home Management, Sensory Integration,Soft Tissue Mobilization,Taping, Therapeutic Activities, Therapeutic Exercises Modalities Cold Pack/Ice Massage,Electric Stimulation,Hot Packs, Ultrasound Other Therapeutic Interventions No grade IV mobilizations due to osteoporosis Discharge Physical Therapy Discharge Reasons Patient Request Discharge Comments Pt has progressed well toward PT goals, meeting several. Still lacking full cervical spine rotation ROM. Pt visits limited due to financial concerns, but pt has progressed well, compliant with HEP, and is managing symptoms with HEP. PT and pt discussed discharge at last session. PT and pt in agreement. Issued maintenance programs based on past HEP and for progressions with impact/ resistance training for osteoporosis and symptom management. PT educated pt to follow up with PCP for new referral if needed, or if pain symptoms return or worsen. Pt verbalizes understanding. Next Visit Focus/Plan Next Note Type Discharge Summary Next Visit Plan discharge from PT
== END 2024-09-25 14:58 | disposition home or self-care (01) ==
LOC: PHYS 10:45
PROVIDERS: Family Provider Family Medicine; PCP Family Medicine; Referring Provider Physical Medicine & Rehabilitation; Visit Provider Physical Medicine & Rehabilitation
DX: M47.22 Other spondylosis with radiculopathy, cervical region (principal); M75.42 Impingement syndrome of left shoulder; M25.612 Stiffness of left shoulder, not elsewhere classified; R53.1 Weakness; M25.69 Stiffness of other specified joint, not elsewhere classified
CPT/HCPCS: 97110; 97140; 97161; 97535

== ENCOUNTER → 2024-12-24 07:40 | Outpatient (CLI) | payer OTHER, SELFPAY ==
--- NOTE | 2024-12-24 07:42 | DI.MG.S_ITS ---
MM screening mammo BI: 12/24/2024. BI-RADS: 2 CLINICAL: 74-year old female for bilateral screening mammogram. Tyrer-Cuzick lifetime risk of 1.6%. No personal or first-degree family history of breast cancer. PRIOR EXAMS 10/11/2023, 09/13/2023, 04/18/2022, 03/09/2020. MAMMOGRAPHY TECHNIQUE: 2D and 3D (tomosynthesis) digital mammographic views obtained, with additional images as needed for full coverage. Current study was also evaluated with a Computer Aided Detection (CAD) system. DENSITY B. There are scattered areas of fibroglandular density. MAMMOGRAPHY FINDINGS Bilateral: Benign-appearing calcifications noted. There are no suspicious masses, calcifications, or other findings in the breast. No significant change from comparison. IMPRESSION: * No evidence of malignancy with benign findings. RECOMMENDATIONS Bilateral * Annual screening mammography. OVERALL ASSESSMENT CATEGORY BI-RADS-2: Benign. The [employer] recommends annual screening mammography beginning at age 40 for women with average risk of breast cancer. ELECTRONICALLY SIGNED: Dinaa Berg M.D. on 12/24/2024 at 02:26:13 PM PT Interpreting Station ID: [id number]
== END ==
LOC: MAMMO 07:40
PROVIDERS: Family Provider Family Medicine; PCP Family Medicine; Referring Provider Family Medicine; Visit Provider Family Medicine
DX: Z12.31 Encounter for screening mammogram for malignant neoplasm of breast (principal); R92.1 Mammographic calcification found on diagnostic imaging of breast
CPT/HCPCS: 77063; 77067